=== PATIENT | male | born 1940 | race Caucasian/White ===

== ENCOUNTER 2016-11-22 16:28 | Inpatient (IN) ==
--- NOTE | 2016-11-22 16:55 | EKG Report ---
Stationary ECG Study [facility] ER Test Date: 11/22/2016 4:39:02 PM Pat Name: MOHIT NELSON Department: Room: Gender: M [employer]: : 1940 Requested by: Garfield Arguelles Order Number: [id number] Reading MD: JEREMIE BARNEY Intervals [place] Rate: 92 P: 999 W[place]: 0 QRS: 24 QRSD: 126 T: -12 QT: 357 QTc: 407 Interpretive Statements ATRIAL FIBRILLATION WITH ABERRANT CONDUCTION OR VENTRICULAR PREMATURE COMPLEXES RSR (QR) IN V1/V2 CONSISTENT WITH RIGHT VENTRICULAR CONDUCTION DELAY MINIMAL ST DEPRESSION, PROBABLY DIGITALIS EFFECT ABNORMAL RHYTHM ECG Electronically Signed On 11-23-16 15:41:03 CDT by JEREMIE BARNEY [email or web address]
--- NOTE | 2016-11-22 19:42 | Emergency Department Note ---
Arrival - Arrival Chief Complaint: Shortness of Breath Stated Complaint: chest pains/hard to breathe ED Nursing Triage Note: C/o congestion, cough, and SOB-onset two days ago. also reports elevated temp of 100.0. Mode of Arrival: Wheelchair Time Seen by Provider: 11/22/16 18:18 - History of Present Illness HPI Narrative: This is a 76-year-old white male with a history of pulmonary embolus and atrial fibrillation on Pradaxa, congestive heart failure, hypertension, previous pneumonia, type 2 diabetes and hyperlipidemia who presents with 3 days of chest pain and shortness of breath which is worse with recumbent position in which yesterday was associated with a temperature of 100. The patient presents for evaluation of his chest pain shortness of breath and fever. He has had no syncope abdominal pain back pain palpitations or coughing blood. Allergies/Adverse Reactions: Allergies Allergy/AdvReac Type Severity Reaction Status Date / Time hydrocodone Allergy Verified 09/26/15 16:07 Home Medications: Home Medications Medication Instructions Recorded Confirmed Type Atorvastatin [Lipitor] 40 mg PO MOWEFR 09/26/15 11/22/16 History Carvedilol 3.125 mg PO BID 09/26/15 11/22/16 History Dabigatran [Pradaxa] 150 mg PO BID 09/26/15 11/22/16 History Furosemide Tab [Lasix Tab] 40 mg PO DAILY 09/26/15 11/22/16 History Insulin Glargine,Hum.rec.anlog 50 unit SUBCUT QPM 09/26/15 11/22/16 History [Lantus SoloStar] Oxycodone HCl/Acetaminophen 1 - 2 each PO Q6HR PRN #30 tablet 09/26/15 11/22/16 Rx [Oxycodon-Acetaminophen 7.5-325] Sertraline [Zoloft] 100 mg PO DAILY 09/26/15 11/22/16 History clonazePAM [Clonazepam] 0.5 mg PO TID 09/26/15 11/22/16 History Insulin Glargine [Lantus] 68 unit SUBCUT AC SUPPER 11/22/16 11/22/16 History Review of System - Review of System Constitutional: Present: fever. Absent: night sweats, weakness Eyes: Absent: redness, vision change Head/Ears/Nose/Throat: Absent: epistaxis, nasal drainage Respiratory: Present: cough. Absent: wheezing Cardiovascular: Present: dyspnea on exertion, orthopnea. Absent: edema Gastrointestinal: Absent: diarrhea, constipation, hematemesis, melena Genitourinary male: Absent: dysuria, hematuria Musculoskeletal: Absent: joint swelling, lower back pain Skin: Absent: change in color, change in hair/nails Neurological: Absent: numbness, paresthesias Psychiatric: Absent: suicidal thoughts, homicidal thoughts Endocrine: Absent: heat intolerance, polydipsia Hematological/Lymphatic: Absent: easy bruising, lymphadenopathy Allergic/Immunologic: Absent: urticaria, itchy eyes Medical,Surgical,& Family Hx - Medical History Cardio: History of: Cardiac Dysrhythmia (afib), CHF, Hypertension Endocrine: History of: Diabetes Mellitus (IDDM) Respiratory: History of: Bronchitis, Pneumonia - Social History Smoking Status: Never smoker Frequency of Alcohol Use: None Type of Drug Use: None Exam Vital Signs: Vital Signs Temperature 98.4 F 11/22/16 17:30 Pulse Rate 100 H 11/22/16 17:30 Respiratory Rate 18 11/22/16 17:30 Blood Pressure 126/68 11/22/16 17:30 O2 Sat by Pulse Oximetry 93 L 11/22/16 16:33 - General Exam limited due to: ALOC General appearance: alert - Eye Eye exam: Present: PERRL, EOMI - ENT ENT exam: Present: normal exam, normal oropharynx - Neck Neck exam: Present: normal inspection, full ROM - Chest Chest inspection: Present: normal inspection, symmetric chest wall rise - Respiratory Respiratory exam: Present: normal lung sounds bilaterally, prolonged expiratory phase - Cardiovascular Cardiovascular exam: Present: regular rate, normal rhythm - Abdominal Exam Abdominal exam: Present: soft, normal bowel sounds - Extremities Exam Extremities exam: Present: normal inspection, full ROM - Back Exam Back exam: Present: normal inspection, full ROM - Neurological Exam Neurological exam: Present: alert, oriented X3 - Psychiatric Psychiatric exam: Present: normal affect, normal mood
[2016-11-22] MEDS ORDERED: ACETAMINOPHEN 500 MG TABLET PO STA (19:46)
[2016-11-22] MEDS ORDERED: ACETAMINOPHEN 500 MG TABLET ONE (19:49)
[2016-11-22 20:01] LABS: Basophils % 0.3 % (0.0-0.8); Eosinophils # 0.1 10*3/uL (0.0-0.87); Eosinophils % 0.4 % (0.00-10.9); Hematocrit 40.2 VOL% (42.0-52.0); Hemoglobin 13.7 GM/DL (14.0-18.0); Immature Granulocytes % 0.8 %; Immature Granulocytes Absolute 0.11 #; Lymphocytes # 1.9 10*3/uL (1.4-4.0); Lymphocytes % 13.6 % (21.2-54.2); Mean Corpuscular HGB Conc 34.1 GM/DL (32-36); Mean Corpuscular Hemoglobin 29 PG (27-34); Mean Corpuscular Volume 84.5 FL (87-102); Mean Platelet Volume 10.4 FL (9.6-12.0); Monocytes # 1.1 10*3/uL (0.11-0.8); Neutrophils # 10.6 10*3/uL (1.4-7.4); Neutrophils % 76.9 % (38.7-73.9); Platelet Count 303 T/CUMM (130-400); Red Blood Count 4.76 MC/CUMM (3.8-5.5); Red Cell Distribution Width 14.3 % (9.3-17.3); White Blood Count 13.8 T/CUMM (4-12)
[2016-11-22 20:17] LABS: Alanine Aminotransferase 16 U/L (16-61); Albumin 3.7 G/DL (3.4-5.0); Alkaline Phosphatase 86 U/L (45-117); Aspartate Amino Transferase 14 U/L (0-37); Blood Urea Nitrogen 17 MG/DL (7-18); Calcium 8.9 MG/DL (8.5-10.1); Glucose 220 MG/DL (74-106); Osmolality,Calculated 266.9 MOS/KG (273-304); Potassium 4.3 MMOL/L (3.5-5.1); Sodium 129 MMOL/L (136-145); Troponin I Only < 0.015 NG/ML (0.00-0.045)
--- NOTE | 2016-11-22 21:10 | CT Report ---
CTA chest November 22, 2016 at 2044 hours Indication: Chest pain, shortness of breath, fever Comparison: March 17, 2012 Technique: Axial CT imaging of the chest is performed with intravenous contrast. Contrast dose is 80 cc of Omnipaque 350. Findings: Chest: No thrombus or other abnormality is identified in the pulmonary arteries or veins. The pulmonary vessel caliber is within normal limits. Mild Four-chamber cardiomegaly. Scattered plaquing along the arch and coronary vessels. No adenopathy. No effusions. A few scattered pulmonary granulomas, largest within the right lung base, stable. Left basilar atelectasis/scarring. Lungs are otherwise clear. Visualized abdomen: Cholelithiasis. Impression: 1. No evidence of pulmonary embolism 2. No acute intrathoracic abnormality. 3. Cholelithiasis 4. Other findings as discussed above This CT exam was performed using one or more the following dose reduction techniques: Automated exposure control, adjustment of the MA and/or KV according to patient size, or use of iterative reconstruction technique. PROCEDURE INTERPRETED AT [facility] DEPARTMENT OF RADIOLOGY Final Report Signed by: Domingo Roberson
[2016-11-22] MEDS ORDERED: PIPERACILLIN/TAZOBACTAM 3,375 MG in SODIUM CHLORIDE 0.9% 100 ML IV STA (23:13)
[2016-11-22] MEDS ORDERED: metroNIDAZOLE INJ 500 MG in PREMIX 1 EACH IV STA (23:13)
[2016-11-22] MEDS ORDERED: PIPERACILLIN/TAZOBACTAM 3,375 MG VIAL IV ONE (23:17)
[2016-11-22] MEDS ORDERED: metroNIDAZOLE 500 MG/100 ML PREMIX IV ONE (23:17)
[2016-11-22] MEDS ORDERED: SODIUM CHLORIDE 0.9% 100 ML IV ONE (23:18)
[2016-11-22] MEDS ORDERED: SODIUM CHLORIDE 0.9% 2,000 ML IV STA (23:23)
[2016-11-22] MEDS ORDERED: ACETAMINOPHEN 325 MG TABLET PO PRN (23:41)
--- NOTE | 2016-11-23 00:11 | Hospitalist Consult Note ---
History of Present Illness - Data of Consult Consult date: 11/23/16 - Consult Narrative Reason for consult: Managment of medical problems History of present illness: Mr. Casey is a 76 year old male who presents with vague complaints of anterior chest pain and SOB for the past 3 days. Patient reports a temperature of 100 at home, and he decided to come in. Imaging done and suggestive of biliary disease with air in the gallbladder and biliatry tree. Surgery was called, and surgery has decided to admit the patient to their service. Hospitalist service was consulted for medical management. Patient is a difficult but pleasant historian. He states that about 3 days ago, he woke up because of anterior chest pain and shortness of breath. Prior to going to bed, he ate some spicy food. Chest discomfort was pressure like and relieved with belching/tums/nexium/baking soda. Symptoms were intermittent. He had a temperature of 100 degrees today and decided to come to the ER. He also had some chills and nausea but no vomiting. He denies any lightheadnes/dizziness /diarrhea/abdominal pain. While in the ER, CT of the chest abdomen and pelvis was done as well as a gallbladder ultrasound. CTAP and RUQUS showed air in the gallbladder and biliary system and gallstones. He was also started on zosyn/flagyl/ppi. CC: - Home Medications and Allergies Home Medications: Home Medications Medication Instructions Recorded Confirmed Type Atorvastatin [Lipitor] 40 mg PO MOWEFR 09/26/15 11/22/16 History Carvedilol 3.125 mg PO BID 09/26/15 11/22/16 History Dabigatran [Pradaxa] 150 mg PO BID 09/26/15 11/22/16 History Furosemide Tab [Lasix Tab] 40 mg PO DAILY 09/26/15 11/22/16 History Insulin Glargine,Hum.rec.anlog 50 unit SUBCUT QPM 09/26/15 11/22/16 History [Lantus SoloStar] Oxycodone HCl/Acetaminophen 1 - 2 each PO Q6HR PRN #30 tablet 09/26/15 11/22/16 Rx [Oxycodon-Acetaminophen 7.5-325] Sertraline [Zoloft] 100 mg PO DAILY 09/26/15 11/22/16 History clonazePAM [Clonazepam] 0.5 mg PO TID 09/26/15 11/22/16 History Insulin Glargine [Lantus] 68 unit SUBCUT AC SUPPER 11/22/16 11/22/16 History Allergies/Adverse Reactions: Allergies Allergy/AdvReac Type Severity Reaction Status Date / Time hydrocodone Allergy Verified 09/26/15 16:07 Medical,Surgical,& Family Hx - Medical History Cardio: History of: Cardiac Dysrhythmia (afib), CHF, Hypertension Endocrine: History of: Diabetes Mellitus (IDDM) Respiratory: History of: Bronchitis, Pneumonia - Surgical History Orthopedic Surgeries: Surgical HX of;: Orthopedic Surgery (partial amputation of left ring finger) - Social History Smoking Status: Never smoker Frequency of Alcohol Use: None Type of Drug Use: None 12 point system: reviewed and no additional remarkable complaints except as stated Exam - Constitutional Vitals: Period Temp Pulse Resp BP Sys/Pacheco Pulse Ox Last 24 Hr 98.4 F-98.4 F 100-100 18-18 126-126/68-68 93 General appearance: no acute distress, morbidly obese - Head Head exam: Present: normal inspection, normocephalic - Eye Eye exam: Present: EOMI Pupils: Present: DEMETRIA - ENT ENT exam: Present: normal exam, normal oropharynx - Respiratory Respiratory exam: Present: clear to auscultation bilaterally. Absent: chest wall tenderness, rales, rhonchi, wheezes - Cardiovascular Cardiovascular exam: Present: irregular rhythm (ns1, ns2) - GI/Abdominal GI/Abdominal exam: Present: normal bowel sounds, soft. Absent: guarding, mass ( obese), tenderness, rebound - Extremities Exam Extremities exam: Absent: edema - Neurological Exam Neurological exam: Present: alert, oriented X3 - Psychiatric Psychiatric exam: Present: normal affect, normal mood - Skin Skin exam: Present: normal color, warm, dry Results - Labs CBC & BMP: 11/22/16 18:28 11/22/16 18:28 - EKG EKG shows: atrial fibrillation - Impressions Patient is a 76 yo male with complaints of fevers, anterior chest wall pain and SOB is being admitted for suspected biliary infection. 1. Sepsis: given tachycardia and leukocytosis. Suspect biliary involvement. CT of the chest unremarkable. Bcx pending. 2. Suspected biliary infection. Could have acute cholecytitis. Surgery is primary. Will defer further management (surgurical vs non operative) to them. May need HIDA. 3. Anterior chest wall pain:likely GI in nature. EKG/TNI/BNP unremarkable. Will check for flu. 4. Acute dyspnea: likely related to biliary disease. 5. Suspected YARA 6. Hyponatremia, hypotonic. Seems to be chronic. Sodium level from 04/06 was 131. On lasix and zoloft as well. 7. Cormobid conditions: h/o PE, DM, dyslipidemia, depression, CHF, a-fib, HTN Plan: continue zosyn add flagyl; await blood culture results; check lipase, direct bilirubin; monitor cbc; check flu a/b; add nebs; IVFs while monitoring volume and respiratory status; PPI; anti emetics; consult sleep medicine; check urine lytes to calculate FeUrea (on lasix); check tsh; obtain echo; hold pradaxa for now; start weight based lovenox until plans are known by surgery; check hba1c; continue insulin to control sugars; restart home medications as appropriate; on therapeutic lovenox. Thanks for allowing the hospitalist service an opportunity to be a part of Mr. Casey' medical care. We will continue to follow the patient with you. - Diagnostic Findings Procedure: CT Abdomen and Pelvis: report reviewed by me (gallstones, air in gallbladder and biliary tree), CT - chest: report reviewed by me (no PE; cholelithiasis), Ultrasound: report reviewed by me (gallstones; air in gallbladder) Quality Measures - VTE Deep Vein Thrombosis/Pulmonary Embolism Present on Admission: No Contraindication to Pharmacological VTE Prophylaxis: Already on Theraputic Agent , No Prophylaxis Needed
[2016-11-23] MEDS ORDERED: DEXTROSE 50% 25 GM/50 ML SYRINGE IV PRN (00:49)
[2016-11-23] MEDS ORDERED: GLUCAGON 1 MG VIAL IM PRN (00:49)
[2016-11-23] MEDS ORDERED: clonazePAM 0.5 MG TABLET PO PRN (00:54)
[2016-11-23] MEDS ORDERED: SODIUM CHLORIDE 0.9% 1,000 ML IV SCH (01:00)
[2016-11-23] MEDS: metroNIDAZOLE INJ 500 MG in PREMIX 1 EACH IV SCH ×3 (01:41→22:20)
[2016-11-23] MEDS: PIPERACILLIN/TAZOBACTAM 3,375 MG in SODIUM CHLORIDE 0.9% 100 ML IV SCH ×3 (01:41→16:59)
[2016-11-23] MEDS: ENOXAPARIN 120 MG/0.8 ML SYRINGE SUBCUT SCH ×2 (01:45→12:32)
[2016-11-23 03:38] LABS: Basophils # 0.1 10*3/uL (0.0-0.2); Basophils % 0.4 % (0.0-0.8); Eosinophils # 0.2 10*3/uL (0.0-0.87); Eosinophils % 1.2 % (0.00-10.9); Hematocrit 36.7 VOL% (42.0-52.0); Hemoglobin 12.6 GM/DL (14.0-18.0); Immature Granulocytes Absolute 0.13 #; Lymphocytes # 2.2 10*3/uL (1.4-4.0); Lymphocytes % 16.9 % (21.2-54.2); Mean Corpuscular HGB Conc 34.3 GM/DL (32-36); Mean Corpuscular Hemoglobin 29 PG (27-34); Mean Platelet Volume 10.4 FL (9.6-12.0); Monocytes # 1.2 10*3/uL (0.11-0.8); Monocytes % 8.9 % (1.7-12.7); Neutrophils # 9.3 10*3/uL (1.4-7.4); Neutrophils % 71.6 % (38.7-73.9); Platelet Count 289 T/CUMM (130-400); Red Blood Count 4.37 MC/CUMM (3.8-5.5); Red Cell Distribution Width 14.4 % (9.3-17.3); White Blood Count 12.9 T/CUMM (4-12)
[2016-11-23 04:02] LABS: Albumin 3.4 G/DL (3.4-5.0); Bilirubin,Total 2.6 MG/DL (0.2-1.0); Calcium 8.5 MG/DL (8.5-10.1); Osmolality,Calculated 265.7 MOS/KG (273-304); Potassium 3.9 MMOL/L (3.5-5.1); Total Protein 6.5 G/DL (6.4-8.3)
[2016-11-23] MEDS: INSULIN LISPRO 100 UNIT/ML SUBCUT SCH ×3 (06:24→18:33)
[2016-11-23] MEDS: PANTOPRAZOLE 40 MG TABLET PO SCH (08:38)
--- NOTE | 2016-11-23 08:38 | CT Report ---
Exam: CT abdomen and pelvis without intravenous contrast Exam date: 11/22/2016 2239 hours Clinical History: 76-year-old male with abdominal pain, generalized radiating to epigastric Technique: Axial computed tomography images of the abdomen and pelvis without intravenous contrast. All CT scans at this facility use one or more dose reduction techniques. Automated exposure control, MA/KV adjustment per patient size (including targeted exam Square dose is matched to indication) or iterative reconstruction technique Comparison: November 06, 2010 Findings: Lower thorax: Mild two chamber cardiomegaly. Left basilar pleural thickening with mild fibrosis. Minimal pleural plaquing within the left lung base. Abdomen: Liver: Fatty infiltration Gallbladder and bile ducts: Calcified stones within a nondistended gallbladder. No ductal dilatation. Air is present within the gallbladder and biliary tree, correlate with history of intervention. Infection with gas producing organism cannot be excluded. Pancreas: Pancreas is normal. Spleen: Spleen is normal. Adrenals: No adrenal mass. Kidneys and ureters: Residual contrast within the renal collecting system and urinary bladder. No hydronephrosis. No ureteral calculus. Stomach and bowel: No evidence of acute gastritis, colitis or enteritis. No bowel obstruction. Appendix: No primary or secondary signs to suggest appendicitis. Pelvis: Bladder: Unremarkable Reproductive: Unremarkable as visualized. Abdomen and pelvis: Intraperitoneal space: No pneumoperitoneum. No free intraperitoneal fluid Bones/joints: No acute osseous abnormality. Note is made of bilateral pars defects at L5 Soft tissues: No mass Vasculature: No aortic aneurysm. Atheromatous calcifications noted along the aorta and branch vessels. Lymph nodes: No adenopathy Impression: 1. Cholelithiasis. 2. Intraluminal air within the gallbladder and biliary tree, correlate clinically for recent instrumentation. Infection with gas producing organism cannot be excluded. Correlate clinically. PROCEDURE INTERPRETED AT [facility] DEPARTMENT OF RADIOLOGY Final Report Signed by: Domingo Roberson
--- NOTE | 2016-11-23 08:45 | Ultrasound Report ---
Exam: Ultrasound abdomen Limited, right upper quadrant Clinical History: The patient is 76-year-old male with pain, abdominal, epigastric Technique: Real-time ultrasound right upper quadrant with image documentation Comparison: CT abdomen and pelvis without contrast performed on same date at 2237 hours Findings: Liver: Liver is slightly enlarged and demonstrates diffuse increased echogenicity measuring up to 19.0 cm Gallbladder: Multiple shadowing stones with layering sludge. Additional echogenic foci with posterior shadowing likely represents air as demonstrated on recent CT. Mild circumferential gallbladder wall thickening. Common bile duct: Nondilated Pancreas: Unremarkable as visualized Right kidney: Unremarkable Impression: 1. Cholelithiasis with intraluminal air and mild gallbladder wall thickening. Findings concerning for emphysematous cholecystitis. Correlate clinically. 2. Hepatomegaly with steatosis PROCEDURE INTERPRETED AT [facility] DEPARTMENT OF RADIOLOGY Final Report Signed by: Domingo Roberson
[2016-11-23] MEDS ORDERED: LORazepam 2 MG/1 ML VIAL IV PRN (08:51)
--- NOTE | 2016-11-23 10:57 | General Surg History&Physical ---
Assessment and Plan (1) Pneumobilia Status: Acute Assessment and plan: Impression: Asymptomatic pneumobilia Plan: CT images and report and ultrasound reviewed. Labs reviewed. Of significance is air and stones within the gallbladder but no gallbladder wall emphysema. Suggestion of mild gallbladder wall thickening but not significant enough to suggest cholecystitis. He has some air in the common bile duct and hepatic ducts. Bilirubin is elevated at 2.6 but the remainder of his LFTs are normal. White blood cell count elevated upon admission now improved to 12.9. He also has hepatomegaly and steatosis. He has no abdominal pain with a completely benign abdominal exam. Will consult cardiology for his chest pressure as he is known to Dr. Moran. Hyperbilirubinemia causes unknown. His duct was normal size and so I think choledocholithiasis is a possibility but unlikely. He does not appear septic such as would be seen with cholangitis with a gas-forming organism. 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 No plans for any surgical intervention at this time. Will consult GI for their evaluation. We will also check a hepatitis panel. Recheck his lab work tomorrow. Regular diet today. We will check a urinalysis. Current Visit: Yes History of Present Illness Chief complaint: Anxiety attack History of present illness: Mr. Casey is a 76 year old male with multiple medical problems who woke up in the middle of the night with tightness across his chest. He says this occurs quite frequently and he attributes it to a panic attack. He says he usually is able to calm himself down. He apparently checked his temperature this time and it was 100.4. He called his daughter who is a nurse who told him to go to the emergency room. He was evaluated by the emergency room physicians and a workup was performed. On that workup he was found to have gallstones and air in the biliary tree and gallbladder. His symptoms have resolved. He denies shortness of breath but he has to pause with every sentence to take of breath. Previous abdominal surgical history is an open prostatectomy for cancer. He denies any recent instrumentation of his GI tract. Home Medications Medication Instructions Recorded Confirmed Type Atorvastatin [Lipitor] 40 mg PO MOWEFR 09/26/15 11/22/16 History Carvedilol 3.125 mg PO BID 09/26/15 11/22/16 History Dabigatran [Pradaxa] 150 mg PO BID 09/26/15 11/22/16 History Furosemide Tab [Lasix Tab] 40 mg PO DAILY 09/26/15 11/22/16 History Insulin Glargine,Hum.rec.anlog 50 unit SUBCUT QPM 09/26/15 11/22/16 History [Lantus SoloStar] Oxycodone HCl/Acetaminophen 1 - 2 each PO Q6HR PRN #30 tablet 09/26/15 11/22/16 Rx [Oxycodon-Acetaminophen 7.5-325] Sertraline [Zoloft] 100 mg PO DAILY 09/26/15 11/22/16 History clonazePAM [Clonazepam] 0.5 mg PO TID 09/26/15 11/22/16 History Insulin Glargine [Lantus] 68 unit SUBCUT AC SUPPER 11/22/16 11/22/16 History Allergies Allergy/AdvReac Type Severity Reaction Status Date / Time hydrocodone Allergy Verified 09/26/15 16:07 Medical,Surgical,& Family Hx - Medical History Cardio: History of: Cardiac Dysrhythmia (afib), CHF, Hypertension Endocrine: History of: Diabetes Mellitus (IDDM) Respiratory: History of: Bronchitis, Pneumonia Reproductive: Reports: Reproductive Cancer (prostate) - Surgical History HEENT Surgeries: Surgical HX of: Tonsilectomy & Adenoidectomy Orthopedic Surgeries: Surgical HX of;: Orthopedic Surgery (partial amputation of left ring finger) - Social History Smoking Status: Never smoker Frequency of Alcohol Use: None Type of Drug Use: None Exam - Constitutional Vitals: Period Temp Pulse Resp BP Sys/Pacheco Pulse Ox Last 24 Hr 97.0 F-98.4 F 82-100 18-20 88-126/55-68 93-98 General appearance: no acute distress - Head Head exam: Present: normocephalic - ENT Mouth exam: Present: normal external inspection - Neck Neck exam: Present: normal inspection - Cardiovascular Cardiovascular exam: Present: RRR - GI/Abdominal GI/Abdominal exam: Present: soft (Completely benign. No tenderness or distention at all.) - Back Exam Back exam: Present: normal inspection - Neurological Exam Neurological exam: Present: alert Speech: Present: normal - Skin Skin exam: Present: normal color 12 point system: reviewed and no additional remarkable complaints except as stated Quality Measures - VTE Deep Vein Thrombosis/Pulmonary Embolism Present on Admission: No Contraindication to Pharmacological VTE Prophylaxis: Already on Theraputic Agent , No Prophylaxis Needed Results - Labs CBC & BMP: 11/23/16 02:08 11/23/16 02:08 Lab Results: I have reviewed the past 24 hour labs
--- NOTE | 2016-11-23 13:16 | Cardiology Consult Note ---
Assessment and Plan (1) Pneumobilia Status: Acute Assessment and plan: It appears that his symptoms are probably related to his gallbladder. Surgical treatment is an option being considered. From a cardiac standpoint he is well compensated. I reviewed his echocardiogram which shows normal left ventricular function. He does not have any significant valvular dysfunction. From a cardiac standpoint I think he is low risk to proceed to surgery if needed. Current Visit: Yes (2) Gallstone Status: Acute Current Visit: Yes (3) Hypertension Status: Acute Assessment and plan: We can resume his usual home medications and make adjustments as needed. Current Visit: Yes (4) Diabetes Status: Acute Assessment and plan: We can resume his usual home medications and make adjustments as needed per Current Visit: Yes (5) Chronic atrial fibrillation Status: Acute Assessment and plan: The patient has chronic atrial fibrillation which is well controlled on his current medical regimen. I do not see any reason to make any changes at this time. Current Visit: Yes (6) Chronic anticoagulation Status: Acute Assessment and plan: We can resume this when it is safe from a postoperative standpoint. Current Visit: Yes (7) Morbid obesity Status: Acute Current Visit: Yes (8) Elevated bilirubin Status: Acute Current Visit: Yes History of Present Illness - Consult Narrative History of present illness: Mr. Casey is a 76 year old male who has a history of chronic atrial fibrillation, hypertension, morbid obesity, and diabetes. His normal shop cooper is Dr. Moran. The patient came to the hospital after experiencing some epigastric chest discomfort last night along with low-grade fever. The symptoms were moderate in severity. He attributes them to eating certain spicy foods. Otherwise there were no specific exacerbating or relieving factors. He had some mild nausea but no vomiting. His workup thus far has included cardiac enzymes which are negative, and EKG which shows chronic atrial fibrillation with controlled ventricular response and right bundle branch block. There are no acute EKG changes. However, his bilirubin was elevated and his workup thus far including chest CT and gallbladder ultrasound also shows pneumobilia and gallstones. He may end up needing surgery for this. The patient attributes all of these symptoms to eating peanuts chips and other spicy foods. He denies any exertional angina. He has no known history of coronary artery disease. He does have chronic mild dyspnea on exertion which he relates to his morbid obesity and/or deconditioning. The patient denies any syncope or presyncope. He has no orthopnea, PND, or peripheral edema. He has no history of congestive heart failure. He has a long -standing history of diabetes and reports this is generally well controlled. He has a long-standing history of hypertension which is also been generally well controlled. He has chronic atrial fibrillation which is been managed with rate control and anticoagulation. He does not have any overt symptoms related to this. He denies any bleeding associated with his chronic anticoagulation. He denies any history of coronary artery disease or angina. He has never had a myocardial infarction or stents. Today I reviewed his old hospital records, current hospital records and testing , clinic notes, EKGs, labs, and today's echo. CC: Tim Amado MD - Home Medications and Allergies Home Medications: Home Medications Medication Instructions Recorded Confirmed Type Atorvastatin [Lipitor] 40 mg PO MOWEFR 09/26/15 11/22/16 History Carvedilol 3.125 mg PO BID 09/26/15 11/22/16 History Dabigatran [Pradaxa] 150 mg PO BID 09/26/15 11/22/16 History Furosemide Tab [Lasix Tab] 40 mg PO DAILY 09/26/15 11/22/16 History Insulin Glargine,Hum.rec.anlog 50 unit SUBCUT QPM 09/26/15 11/22/16 History [Lantus SoloStar] Oxycodone HCl/Acetaminophen 1 - 2 each PO Q6HR PRN #30 tablet 09/26/15 11/22/16 Rx [Oxycodon-Acetaminophen 7.5-325] Sertraline [Zoloft] 100 mg PO DAILY 09/26/15 11/22/16 History clonazePAM [Clonazepam] 0.5 mg PO TID 09/26/15 11/22/16 History Insulin Glargine [Lantus] 68 unit SUBCUT AC SUPPER 11/22/16 11/22/16 History Allergies/Adverse Reactions: Allergies Allergy/AdvReac Type Severity Reaction Status Date / Time hydrocodone Allergy Verified 09/26/15 16:07 12 point system: reviewed and no additional remarkable complaints except as stated Medical,Surgical,& Family Hx - Medical History Cardio: History of: Cardiac Dysrhythmia (afib), CHF, Hypertension Endocrine: History of: Diabetes Mellitus (IDDM) Respiratory: History of: Bronchitis, Pneumonia Reproductive: Reports: Reproductive Cancer (prostate) - Surgical History HEENT Surgeries: Surgical HX of: Tonsilectomy & Adenoidectomy Orthopedic Surgeries: Surgical HX of;: Orthopedic Surgery (partial amputation of left ring finger) - Social History Smoking Status: Never smoker Frequency of Alcohol Use: None Type of Drug Use: None Physical Examination Vital Signs Temp Pulse Resp BP Pulse Ox 98.4 F 100 H 18 126/68 93 L 11/22/16 16:33 11/22/16 16:33 11/22/16 16:33 11/22/16 16:33 11/22/16 16:33 Exam: General: Well-developed well-nourished, morbidly obese and in no acute distress HEENT: Normocephalic, atraumatic Neck: Supple Neck, Midline Trachea Cardiac: Irregular Rhythm, 1 out of 6 to 2 out of 6 systolic murmur, no gallop, no rub Lungs: Grossly Normal Exam, Clear to Ascultation, No Wheeze, Rales, Rhonchi Neuro: Cranial Nerve 2-12 Intact, grossly normal Abdomen: Soft, Active Bowel Sounds, No Masses, No Pulsations/Bruits Skin: Normal color, no rash Extremities: No Clubbing, No Cyanosis, No Edema, Normal Upper Extr. Pulses Musculoskeletal: No acute abnormality noted Psychiatric: The patient is alert and oriented and does not appear to be anxious or depressed. Result/EKG - Labs CBC & BMP: 11/23/16 02:08 11/23/16 02:08 Lab Results: I have reviewed the past 24 hour labs Labs: Laboratory Results - last 24 hr 11/22/16 11/22/16 11/22/16 18:28 18:28 18:28 WBC 13.8 H RBC 4.76 Hgb 13.7 L Hct 40.2 L MCV 84.5 L MCH 29 MCHC 34.1 RDW 14.3 Plt Count 303 MPV 10.4 Neut % (Auto) 76.9 H Lymph % (Auto) 13.6 L Emery % (Auto) 8.0 Eos % (Auto) 0.4 Baso % (Auto) 0.3 Neut # (Auto) 10.6 H Lymph # (Auto) 1.9 Emery # (Auto) 1.1 H Eos # (Auto) 0.1 Baso # (Auto) 0.0 Immature Gran % 0.8 Nucleated RBC % 0.0 Immature Gran # 0.11 Nucleated RBCs # 0.00 Immature Plt Fraction 0.0 Sodium 129 L Potassium 4.3 Chloride 93 L Carbon Dioxide 28 Anion Gap 12.3 BUN 17 Creatinine 1.20 GFR Calculation 81 BUN/Creatinine Ratio 14.00 Glucose 220 H POC Glucose Hemoglobin A1c Calculated Osmolality 266.9 L Calcium 8.9 Total Bilirubin 2.50 H Direct Bilirubin AST 14 ALT 16 Alkaline Phosphatase 86 Troponin I < 0.015 C-Reactive Protein 17.30 H B-Natriuretic Peptide 187 H Total Protein 7.0 Albumin 3.7 Globulin 3.3 Albumin/Globulin Ratio 1.1 Lipase Urine Osmolality Ur Random Creatinine Ur Random Sodium Ur Random Urea Nitrogn 11/22/16 11/23/16 11/23/16 19:22 02:08 02:08 WBC 12.9 H RBC 4.37 Hgb 12.6 L Hct 36.7 L MCV 84.0 L MCH 29 MCHC 34.3 RDW 14.4 Plt Count 289 MPV 10.4 Neut % (Auto) 71.6 Lymph % (Auto) 16.9 L Emery % (Auto) 8.9 Eos % (Auto) 1.2 Baso % (Auto) 0.4 Neut # (Auto) 9.3 H Lymph # (Auto) 2.2 Emery # (Auto) 1.2 H Eos # (Auto) 0.2 Baso # (Auto) 0.1 Immature Gran % 1.0 Nucleated RBC % 0.0 Immature Gran # 0.13 Nucleated RBCs # 0.00 Immature Plt Fraction 0.0 Sodium 131 L Potassium 3.9 Chloride 94 L Carbon Dioxide 27 Anion Gap 13.9 BUN 18 Creatinine 1.20 GFR Calculation 81 BUN/Creatinine Ratio 15.00 Glucose 138 H POC Glucose 245 H Hemoglobin A1c Calculated Osmolality 265.7 L Calcium 8.5 Total Bilirubin 2.60 H Direct Bilirubin AST 13 ALT 14 L Alkaline Phosphatase 81 Troponin I C-Reactive Protein B-Natriuretic Peptide Total Protein 6.5 Albumin 3.4 Globulin 3.1 Albumin/Globulin Ratio 1.0 L Lipase Urine Osmolality Ur Random Creatinine Ur Random Sodium Ur Random Urea Nitrogn 11/23/16 11/23/16 11/23/16 02:08 02:08 02:08 WBC RBC Hgb Hct MCV MCH MCHC RDW Plt Count MPV Neut % (Auto) Lymph % (Auto) Emery % (Auto) Eos % (Auto) Baso % (Auto) Neut # (Auto) Lymph # (Auto) Emery # (Auto) Eos # (Auto) Baso # (Auto) Immature Gran % Nucleated RBC % Immature Gran # Nucleated RBCs # Immature Plt Fraction Sodium Potassium Chloride Carbon Dioxide Anion Gap BUN Creatinine GFR Calculation BUN/Creatinine Ratio Glucose POC Glucose Hemoglobin A1c 8.8 H Calculated Osmolality Calcium Total Bilirubin Direct Bilirubin 0.490 H AST ALT Alkaline Phosphatase Troponin I C-Reactive Protein B-Natriuretic Peptide Total Protein Albumin Globulin Albumin/Globulin Ratio Lipase 65.0 L Urine Osmolality Ur Random Creatinine Ur Random Sodium Ur Random Urea Nitrogn 11/23/16 11/23/16 11/23/16 05:38 06:30 Unknown WBC RBC Hgb Hct MCV MCH MCHC RDW Plt Count MPV Neut % (Auto) Lymph % (Auto) Emery % (Auto) Eos % (Auto) Baso % (Auto) Neut # (Auto) Lymph # (Auto) Emery # (Auto) Eos # (Auto) Baso # (Auto) Immature Gran % Nucleated RBC % Immature Gran # Nucleated RBCs # Immature Plt Fraction Sodium Potassium Chloride Carbon Dioxide Anion Gap BUN Creatinine GFR Calculation BUN/Creatinine Ratio Glucose POC Glucose 115 H Hemoglobin A1c Calculated Osmolality Calcium Total Bilirubin Direct Bilirubin AST ALT Alkaline Phosphatase Troponin I C-Reactive Protein B-Natriuretic Peptide Total Protein Albumin Globulin Albumin/Globulin Ratio Lipase Urine Osmolality 241 Ur Random Creatinine 72 Ur Random Sodium 9.0 Ur Random Urea Nitrogn 379 - EKG EKG results: interpreted by mo Quality Measures - VTE Deep Vein Thrombosis/Pulmonary Embolism Present on Admission: No Contraindication to Pharmacological VTE Prophylaxis: Already on Theraputic Agent , No Prophylaxis Needed
--- NOTE | 2016-11-23 13:32 | ECHO Report ---
Nik Casey Exam Date: 11/23/2016 10:59 Referring Physician: Technologist: Cora Briggs Age: 76 Ht (in): 70 Wt (lb): 285 Gender: M Exam Location: [facility] Echo Indications: Hx. A FIb, Hx. diabetes, bronchitis, pneumonia, sob BP: 115 / 58 HR: 82 Rhythm: Sinus Technical Quality: IMPRESSIONS Normal left ventricular size and systolic function with ejection fraction estimated at 50-55%. There is mild concentric left ventricular hypertrophy. Mild right heart enlargement. Mild left atrial enlargement. Mild mitral annular calcification and mild mitral leaflet thickening with trace mitral regurgitation. Mild aortic sclerosis with trace aortic insufficiency. Mild tricuspid regurgitation. MEASUREMENTS (Male / Female) Normal Values 2D ECHO LV Diastolic Diameter PLAX 3.9 cm 4.2 - 5.9 / 3.9 - 5.3 cm LV Systolic Diameter PLAX 2.3 cm LV Fractional Shortening PLAX 39.5 % IVS Diastolic Thickness 2.0 cm 0.6 - 1.0 / 0.6 - 0.9 cm LVPW Diastolic Thickness 1.6 cm 0.6 - 1.0 / 0.6 - 0.9 cm Aortic Root Diameter 3.5 cm LA Systolic Diameter LX 5.4 cm 3.0 - 4.0 / 2.7 - 3.8 cm DOPPLER TR Peak Velocity 202.0 cm/s TR Peak Gradient 16.3 mmHg FINDINGS Left Ventricle Normal left ventricular size and systolic function with ejection fraction estimated at 50-55%. There is mild concentric left ventricular hypertrophy. Right Ventricle Mildly enlarged Right Atrium Mildly enlarged Left Atrium Mildly enlarged Mitral Valve Mitral annular calcification and mild mitral leaflet thickening with trace mitral regurgitation Aortic Valve Mildly sclerotic with trace aortic insufficiency Tricuspid Valve Structurally normal with mild tricuspid regurgitation Pulmonic Valve Grossly normal Pericardium No effusion Aorta Grossly normal Dariusz Moss (Electronically Signed) Final Date: 23 November 2016 13:21
--- NOTE | 2016-11-23 16:23 | Gastrointestinal Consult Note ---
Assessment and Plan - Time spent with patient Time spent with patient: Greater than 30 minutes (1) Fatty liver Status: Acute Current Visit: Yes (2) Pneumobilia Status: Acute Current Visit: Yes (3) Gallstone Status: Acute Current Visit: Yes (4) Elevated bilirubin Status: Acute Assessment and plan: PLEASE NOTE -- automatic citation of patient information is unavoidable in this electronic note. I have made a reasonable effort to review the information cited , but it is not a part of my evaluation, impression, or recommendation unless specifically discussed in the dictated text that follows. As well, voice recognition software was used in the creation of this clinical note. Reasonable effort was made to identify and correct gross errors. Despite proofreading, errors in crusher setter may be present, including nonsense verbiage at times. If you encounter such an error, please contact me at [phone] for discussion and correction. -- Dr. Obrien Chief complaint/Consult Question: Pneumobilia Consult requested by: Dr. Amado History of present illness: This is a new patient, a 76-year-old obese, man, admitted to the hospital for fever, and found to have pneumobilia. Patient states that for the 3 days leading up to admission he was having significant fevers, Reiger's, temp approximately 100/101. This was associated with pain across central chest, radiating to the right upper quadrant. Also associated with significant food aversion, and did not want to eat or drink at all. Finally came to the ER after prodding by RN daughter. Symptoms have now mostly resolved, no abdominal pain, no chest pain, thinks that food sounds good. States he has been told in the past he had gallstones, and was recommended by at least one physician to have removed, and he had declined at that time. He does not recall if he has ever had acute cholecystitis, or choledocholithiasis symptomatic in the past. GI review of systems included: heartburn, regurgitation, early satiety, dysphagia, odynophagia, abdominal pain, nausea, vomiting, hematemesis, weight loss, weight gain, fever, chills, fatigue, decreased appetite, diarrhea, constipation, hematochezia, melena, bloating, malodorous flatus, anal pain, or NSAID use, and was negative except as noted above. REVIEW OF SYSTEMS: Complete other review of systems negative except as noted in the HPI. Outpatient medications: Personally reviewed Lasix 40 mg p.o. daily, Pradaxa 150 mg p.o. twice daily, Coreg 3.125 mg p.o. twice daily, Lipitor 40 mg daily, Zoloft 100 mg p.o. daily, clonazepam 0.5 mg p.o. 3 times daily, Lantus 68 units q. before mealssupper, Lantus 50 units nightly Inpatient medications: Personally reviewed Tylenol as needed, duo nebs as needed, Klonopin as needed, treatment dose Lovenox 120 mg every 12 hours scheduled, glucagon as needed, Lantus, Humalog, Ativan as needed, Zofran as needed Metronidazole 500 mg every 8 hoursstarted 11/23/16 Protonix 40 mg p.o. daily Pipracil and tazobactam 3.375 every 8 hoursstarted 11/22/16 Past Medical History: Personally reviewed Social history: Negative tobacco. Prior heavy alcohol, nothing for greater than 10 years Family history: Personal history of prostate cancer, brother with prostate cancer, personal history of skin cancer on the face nonmelanoma. No other GI related disease or malignancy PHYSICAL EXAMINATION: CONSTITUTIONAL: Vital signs reviewed as documented above. In no acute distress. Nontoxic-appearing. EYES: Anicteric conjunctiva. Extra-ocular movements are intact and symmetric. EARS: Able to hear speech at conversational volume level, no external trauma/ masses. MOUTH: No oral/mouth lesions or ulcers. NECK: No masses or crepitus. Thyroid is of normal size and symmetric. HEART: Regular rate, regular rhythm LUNGS:. No increased work of breathing or accessory muscle use. GI/ABDOMEN: Morbidly obese abdomen, soft, nontender to palpation, no rebound tenderness, nondistended, no rigidity. No palpable mass. No appreciable hepatosplenomegaly. SKIN: No rash on face, arms, or hands. No palpable lesions MUSCULOSKELETAL: Normal gait. Muscle tone appears normal without any abnormal movements. PSYCH: Normal affect. Alert and oriented to person, place, and time. Laboratory: Personally reviewed CBC with WBC improved from 13.8-12.9, hemoglobin change from 13.7-12.6, platelets 303-289, neutrophil predominance approximately 75% Chemistry with sodium 131, potassium 3.9, chloride 94, carbon dioxide 27, BUN 18 , creatinine 1.2, anion gap increased from 12.3 up to 13.9 today A1c 8.8 Liver associated enzymestotal bilirubin 2.6, direct bilirubin 0.49, AST 13, ALT 14, alk phos 81 (baseline total bilirubin from March 2014 was slightly elevated at 1.4) Lipase 65 Albumin 3.4, total protein 6.5 Radiology: Personally reviewed reports Gallbladder ultrasound from 11/22/16: Liver slightly enlarged and demonstrates diffuse increase in echogenicity. Gallbladder with multiple shadowing stones with layering sludge. Echogenic foci within posterior shadowing likely represents air is demonstrated on recent CT. Mild circumferential gallbladder wall thickening. Common bile duct is nondilated. Pancreas unremarkable. Findings concerning for emphysematous cholecystitis. Abdomen pelvis CT from 11/22/16: Significant for calcified stones within a nondistended gallbladder. No ductal dilation. Air present within the gallbladder and biliary tree. Infection with gas producing organism cannot be excluded. Pancreas is normal. Liver with fatty infiltration. Stomach and bowel with no evidence of acute gastritis, colitis, enteritis. No bowel obstruction. No evidence of appendicitis. No free intraperitoneal fluid or air. Atheromatous calcifications noted along the aorta and branch vessels. No adenopathy. Chest CT from 11/22/16: No PE, no acute intrathoracic abnormality, + cholelithiasis Assessments: #Pneumobilia: Air within the gallbladder, hepatic ducts, common bile duct. Bilirubin elevated to 2.6 but other liver associated enzymes are not elevated. Significant leukocytosis, improved with antibiotics. No clear obstruction. With significantly suspicious symptoms leading up to admission including fever, complete food aversion, I do believe this is likely an air producing infection of the biliary tree. May have been due to transient choledocholithiasis, without any evidence of retained stone currently on imaging, as there is no stone seen, and no common bile duct dilation, and symptoms have now resolved. #Fatty liver: Without evidence of hepatitis #Other specified counseling -- The patient was seen for greater than 30 minutes. The patient was counseled for greater than 50% of this time regarding differential diagnosis, likely diagnosis, diagnostic and therapeutic alternatives, risks/benefits/alternatives of medications and procedures, and plan of care generally. The patient expressed understanding and wishes to proceed. Recommendations: -Continue patient on antibiotic course per primary service -Dr. Amado to determine surgical intervention now versus elective. -Dr. Amado is considering possible ERCP prior to cholecystectomy pending clinical course. No urgent or emergent indication for this at this time. -Weight loss counseling for fatty liver disease performed today with patient and family, recommend 10% weight loss, approximately 35 pounds for this patient , 1-2 pounds per week, this can be done by increased caloric burning, reduce caloric intake, and increasing muscle mass to increase caloric burning at rest I have spoken to Dr. Amado directly regarding my thoughts, assessment, recommendations Dilia Obrien MD, MPH [employer] Current Visit: Yes History of Present Illness History of present illness: Mr. Casey is a 76 year old male Home Medications Medication Instructions Recorded Confirmed Type Atorvastatin [Lipitor] 40 mg PO MOWEFR 09/26/15 11/22/16 History Carvedilol 3.125 mg PO BID 09/26/15 11/22/16 History Dabigatran [Pradaxa] 150 mg PO BID 09/26/15 11/22/16 History Furosemide Tab [Lasix Tab] 40 mg PO DAILY 09/26/15 11/22/16 History Insulin Glargine,Hum.rec.anlog 50 unit SUBCUT QPM 09/26/15 11/22/16 History [Lantus SoloStar] Oxycodone HCl/Acetaminophen 1 - 2 each PO Q6HR PRN #30 tablet 09/26/15 11/22/16 Rx [Oxycodon-Acetaminophen 7.5-325] Sertraline [Zoloft] 100 mg PO DAILY 09/26/15 11/22/16 History clonazePAM [Clonazepam] 0.5 mg PO TID 09/26/15 11/22/16 History Insulin Glargine [Lantus] 68 unit SUBCUT AC SUPPER 11/22/16 11/22/16 History Allergies Allergy/AdvReac Type Severity Reaction Status Date / Time hydrocodone Allergy Verified 09/26/15 16:07 Medical,Surgical,& Family Hx - Medical History Cardio: History of: Cardiac Dysrhythmia (afib), CHF, Hypertension Endocrine: History of: Diabetes Mellitus (IDDM) Respiratory: History of: Bronchitis, Pneumonia Reproductive: Reports: Reproductive Cancer (prostate) - Surgical History HEENT Surgeries: Surgical HX of: Tonsilectomy & Adenoidectomy Orthopedic Surgeries: Surgical HX of;: Orthopedic Surgery (partial amputation of left ring finger) - Social History Smoking Status: Never smoker Frequency of Alcohol Use: None Type of Drug Use: None Exam - Constitutional Vitals: Period Temp Pulse Resp BP Sys/[place] Pulse Ox Last 24 Hr 96.6 F-98.4 F 82-100 18-20 88-138/55-75 93-98 Results - Labs CBC & BMP: 11/23/16 02:08 11/23/16 02:08 Quality Measures - VTE Deep Vein Thrombosis/Pulmonary Embolism Present on Admission: No Contraindication to Pharmacological VTE Prophylaxis: Already on Theraputic Agent , No Prophylaxis Needed
[2016-11-23] MEDS: INSULIN GLARGINE 100 UNIT/ML SUBCUT SCH (20:42)
[2016-11-23] MEDS ORDERED: INSULIN GLARGINE 100 UNIT/ML SUBCUT SCH (21:00)
[2016-11-24] MEDS: INSULIN LISPRO 100 UNIT/ML SUBCUT SCH ×4 (00:29→18:43)
[2016-11-24] MEDS: ENOXAPARIN 120 MG/0.8 ML SYRINGE SUBCUT SCH ×2 (01:27→13:37)
[2016-11-24] MEDS: PIPERACILLIN/TAZOBACTAM 3,375 MG in SODIUM CHLORIDE 0.9% 100 ML IV SCH ×3 (01:29→18:44)
[2016-11-24 03:29] LABS: Basophils # 0.1 10*3/uL (0.0-0.2); Basophils % 0.5 % (0.0-0.8); Eosinophils # 0.2 10*3/uL (0.0-0.87); Eosinophils % 1.8 % (0.00-10.9); Hematocrit 35.9 VOL% (42.0-52.0); Hemoglobin 12.4 GM/DL (14.0-18.0); Immature Granulocytes % 0.5 %; Immature Granulocytes Absolute 0.05 #; Lymphocytes % 18.7 % (21.2-54.2); Mean Corpuscular HGB Conc 34.5 GM/DL (32-36); Mean Corpuscular Hemoglobin 29 PG (27-34); Mean Corpuscular Volume 84.3 FL (87-102); Mean Platelet Volume 10.1 FL (9.6-12.0); Monocytes # 0.8 10*3/uL (0.11-0.8); Monocytes % 7.6 % (1.7-12.7); Neutrophils # 7.7 10*3/uL (1.4-7.4); Neutrophils % 70.9 % (38.7-73.9); Platelet Count 295 T/CUMM (130-400); Red Blood Count 4.26 MC/CUMM (3.8-5.5); Red Cell Distribution Width 14.3 % (9.3-17.3); White Blood Count 10.9 T/CUMM (4-12)
[2016-11-24 03:45] LABS: Apearance,Urine CLEAR (Clear); Bilirubin,Urine Negative (Negative); Blood, Urine Negative (Negative); Glucose,Urine (UA) Negative (Negative); Ketones,Urine Negative (Negative); Nitrite,Urine Negative (Negative); Protein,Urine Negative; Urine Color Yellow (Yellow); Urine Specific Gravity 1.005 (1.001-1.035); WBC,Urine <1 /HPF (0-6)
[2016-11-24 03:58] LABS: Albumin 3.1 G/DL (3.4-5.0); Bilirubin,Direct 0.51 MG/DL (0.0-0.20); Bilirubin,Indirect 1.3 MG/DL (0.0-1.0); Bilirubin,Total 1.8 MG/DL (0.2-1.0); Calcium 8.2 MG/DL (8.5-10.1); Osmolality,Calculated 268.1 MOS/KG (273-304); Potassium 3.8 MMOL/L (3.5-5.1); Total Protein 6.1 G/DL (6.4-8.3)
[2016-11-24 05:53] LABS: Hepatitis A Ab IgM Quant 0.03 Index; Hepatitis A Ab IgM Result Negative (Negative); Hepatitis B Core IgM Quant 0.12 Index; Hepatitis B Core IgM Result Negative (Negative); Hepatitis B Surface Ag Result Negative (Negative); Hepatitis C Virus Ab Quant 0.05 Index; Hepatitis C Virus Ab Result Negative (Negative)
[2016-11-24] MEDS: metroNIDAZOLE INJ 500 MG in PREMIX 1 EACH IV SCH ×3 (06:10→22:40)
[2016-11-24] MEDS: clonazePAM 0.5 MG TABLET PO SCH ×3 (09:35→21:25)
[2016-11-24] MEDS: SERTRALINE 100 MG TABLET PO SCH (09:35)
[2016-11-24] MEDS: PANTOPRAZOLE 40 MG TABLET PO SCH (09:35)
--- NOTE | 2016-11-24 09:45 | Hospitalist Progress Note ---
Assessment and Plan (1) Hyponatremia Status: Acute Assessment and plan: 1)hyponatremia- chronic, improved to 135 this morning. 2)chronic afib on anticoagulation 3)pneumobilia 4)morbid obesity 5)HTN- controlled but home meds not restarted yet. 6)DM- glucose 107-279. Continue current reduced dose of lantus with SSI since he is not eating regularly at this time 7)anxiety- restarted his Zoloft and clonazepam as he takes them at home since he is eating a diet. Current Visit: Yes (2) suspect YARA Status: Acute Current Visit: Yes (3) Pneumobilia Status: Acute Current Visit: Yes (4) Hypertension Status: Acute Current Visit: Yes (5) Diabetes Status: Acute Current Visit: Yes (6) Chronic atrial fibrillation Status: Acute Current Visit: Yes (7) Chronic anticoagulation Status: Acute Current Visit: Yes (8) Morbid obesity Status: Acute Current Visit: Yes Hospitalist: Subjective Interval history: Mr Casey is feeling better this morning. He was able to eat some breakfast. He rested off and on last night. His pain is improved. He denies vomiting this morning. He has not had a fever during this admission. I reviewed the notes from GI and the surgery attending. Exam - Constitutional Vitals: Period Temp Pulse Resp BP Sys/[place] Pulse Ox Last 24 Hr 96.6 F-98.8 F 88-98 18-20 106-142/57-78 91-96 General appearance: no acute distress, morbidly obese - Eye Eye exam: Present: EOMI. Absent: scleral icterus - Respiratory Respiratory exam: Present: clear to auscultation bilaterally - Cardiovascular Cardiovascular exam: Present: regular rate and rhythm - GI/Abdominal GI/Abdominal exam: Present: normal bowel sounds, tenderness, soft - Extremities Exam Extremities exam: Absent: edema Results - Labs CBC & BMP: 11/24/16 03:06 11/24/16 03:06 Lab Results: I have reviewed the past 24 hour labs Quality Measures - VTE Deep Vein Thrombosis/Pulmonary Embolism Present on Admission: No Contraindication to Pharmacological VTE Prophylaxis: Already on Theraputic Agent , No Prophylaxis Needed
--- NOTE | 2016-11-24 11:27 | General Surgery Progress Note ---
Assessment and Plan (1) Elevated bilirubin Status: Acute Assessment and plan: Repeat LFTs in the morning Current Visit: Yes (2) Fatty liver Status: Acute Current Visit: Yes (3) Pneumobilia Status: Acute Assessment and plan: At this point, most likely diagnosis is cholangitis although this is not absolute. Patient is afebrile and pain-free. Continue IV antibiotics and monitor liver function. Consider ERCP in the morning. We will hold n.p.o. for the possibility. Discussed possible cholecystectomy the patient, but he is initially reluctant. Current Visit: Yes Subjective Patient reports: Present: feels better, tolerating a regular diet, afebrile. Absent: nausea, vomiting Exam - Constitutional Vitals: Period Temp Pulse Resp BP Sys/Pacheco Pulse Ox Last 24 Hr 96.6 F-98.8 F 88-98 18-20 106-142/57-78 91-96 General appearance: no acute distress, morbidly obese - Respiratory Respiratory exam: Present: clear to auscultation bilaterally - Cardiovascular Cardiovascular exam: Present: RRR - GI/Abdominal GI/Abdominal exam: Present: normal bowel sounds, soft. Absent: distended, tenderness - Extremities Exam Extremities exam: Absent: calf tenderness, edema - Neurological Exam Neurological exam: Present: alert, oriented X3 Speech: Present: normal - Skin Skin exam: Present: normal color Results - Labs CBC & BMP: 11/24/16 03:06 11/24/16 03:06 Labs: Bilirubin decreased 1.8 Quality Measures - VTE Deep Vein Thrombosis/Pulmonary Embolism Present on Admission: No Contraindication to Pharmacological VTE Prophylaxis: Already on Theraputic Agent , No Prophylaxis Needed
--- NOTE | 2016-11-24 13:17 | Cardiology Progress Note ---
Assessment and Plan (1) Pneumobilia Status: Acute Assessment and plan: It appears that his symptoms are probably related to his gallbladder. Surgical treatment is an option being considered. From a cardiac standpoint he is well compensated. I reviewed his echocardiogram which shows normal left ventricular function. He does not have any significant valvular dysfunction. From a cardiac standpoint I think he is low risk to proceed to surgery if needed. Current Visit: Yes (2) Chronic atrial fibrillation Status: Acute Assessment and plan: The patient has chronic atrial fibrillation which is well controlled on his current medical regimen. I do not see any reason to make any changes at this time. I think we can discontinue the monitoring tech. His cardiac status is well compensated and he has normal left ventricular function. I am going to drop off his case. Please give cardiology a call if we can be of further assistance in his management. He can follow-up with his primary classified ad clerk Dr. Moran after discharge on a routine basis. Current Visit: Yes (3) Gallstone Status: Acute Current Visit: Yes (4) Hypertension Status: Acute Assessment and plan: We can resume his usual home medications and make adjustments as needed. Current Visit: Yes (5) Diabetes Status: Acute Assessment and plan: We can resume his usual home medications and make adjustments as needed per Current Visit: Yes (6) Chronic anticoagulation Status: Acute Assessment and plan: He is on Pradaxa as an outpatient and this is been held pending the possibility of surgery. We can resume this when it is safe from a postoperative standpoint. Current Visit: Yes (7) Morbid obesity Status: Acute Current Visit: Yes (8) Elevated bilirubin Status: Acute Current Visit: Yes Cardiology - PN: Subj Interval history: The patient is feeling well today. He denies any cardiac symptoms such as palpitations or angina. His chief complaint today is actually of the telemetry monitoring which is giving him fits. He begged me to remove it. I reviewed all of his telemetry strips and vital signs. He has chronic atrial fibrillation and this is well controlled. I do not see any reason to continue the telemetry at this time. The patient's abdominal symptoms are also much better. He has eaten a couple of meals today and is not having any problems or symptoms. Current Medications Acetaminophen (Tylenol Tab) 650 mg PO Q6H PRN PRN Reason: Pain Mild (1-3) and/or Fever Albuterol/Ipratropium (Duoneb) 3 ml RESP TX RT Q4H PRN PRN Reason: Shortness of Breath/Wheezing Clonazepam (Klonopin) 0.5 mg PO TID [facility] Last Admin: 11/24/16 09:35 Dose: 0.5 mg Dextrose/Water (D50) 25 gm IV PRN PRN PRN Reason: Hypoglycemia with IV access Enoxaparin Sodium (Lovenox) 120 mg SUBCUT Q12H [facility] Last Admin: 11/24/16 01:27 Dose: 120 mg Glucagon () 1 mg IM PRN PRN PRN Reason: Hypoglycemia w/o IV access Piperacillin Sod/Tazobactam (Sod 3,375 mg/ Sodium Chloride) 100 mls @ 25 mls/ hr IV Q8H [facility] Last Admin: 11/24/16 09:42 Dose: 25 mls/hr Metronidazole/Sodium Chloride (500 mg/ Premix) 100 mls @ 100 mls/hr IV Q8H [facility] Last Admin: 11/24/16 06:10 Dose: 100 mls/hr Insulin Glargine (Lantus) 30 unit SUBCUT BEDTIME [facility] Last Admin: 11/23/16 20:42 Dose: 30 unit Insulin Human Lispro (Humalog) 0 unit SUBCUT Q6HR SAMANTHA PRN Reason: Protocol Last Admin: 11/24/16 06:39 Dose: Not Given Ondansetron HCl (Zofran Inj) 4 mg IV Q6H PRN PRN Reason: Nausea/Vomiting Pantoprazole Sodium (Protonix Tab) 40 mg PO DAILY [facility] Last Admin: 11/24/16 09:35 Dose: 40 mg Sertraline HCl (Zoloft) 100 mg PO DAILY [facility] Last Admin: 11/24/16 09:35 Dose: 100 mg Exam (Progress Note) - Constitutional Vitals: Period Temp Pulse Resp BP Sys/Pacheco Pulse Ox Last 24 Hr 96.7 F-98.8 F 83-98 18-20 106-142/57-78 91-97 Exam: General: Well-developed well-nourished, morbidly obese and in no acute distress HEENT: Normocephalic, atraumatic Neck: Supple Neck, Midline Trachea Cardiac: Irregular Rhythm, 1 out of 6 to 2 out of 6 systolic murmur, no gallop, no rub Lungs: Grossly Normal Exam, Clear to Ascultation, No Wheeze, Rales, Rhonchi Neuro: Cranial Nerve 2-12 Intact, grossly normal Abdomen: Soft, Active Bowel Sounds, No Masses, No Pulsations/Bruits Skin: Normal color, no rash Extremities: No Clubbing, No Cyanosis, No Edema, Normal Upper Extr. Pulses Musculoskeletal: No acute abnormality noted Psychiatric: The patient is alert and oriented and does not appear to be anxious or depressed. Result/EKG - Labs CBC & BMP: 11/24/16 03:06 11/24/16 03:06 Lab Results: I have reviewed the past 24 hour labs Labs: Laboratory Results - last 24 hr 11/23/16 11/23/16 11/23/16 12:02 18:17 20:08 WBC RBC Hgb Hct MCV MCH MCHC RDW Plt Count MPV Neut % (Auto) Lymph % (Auto) [place] % (Auto) Eos % (Auto) Baso % (Auto) Neut # (Auto) Lymph # (Auto) [place] # (Auto) Eos # (Auto) Baso # (Auto) Immature Gran % Nucleated RBC % Immature Gran # Nucleated RBCs # Immature Plt Fraction Sodium Potassium Chloride Carbon Dioxide Anion Gap BUN Creatinine GFR Calculation BUN/Creatinine Ratio Glucose POC Glucose 147 H 279 H 221 H Calculated Osmolality Calcium Total Bilirubin Direct Bilirubin Indirect Bilirubin AST ALT Alkaline Phosphatase Total Protein Albumin Urine Color Urine Appearance Urine pH Ur Specific [place] Urine Protein Urine Glucose (UA) Urine Ketones Urine Blood Urine Nitrate Urine Bilirubin Urine Urobilinogen Urine Leukocytes Urine WBC Ur Culture Indicated? Hepatitis A IgM Ab Hep Bs Antigen Hep B Core IgM Ab Hepatitis C Antibody 11/24/16 11/24/16 11/24/16 00:24 03:00 03:06 WBC 10.9 RBC 4.26 Hgb 12.4 L Hct 35.9 L MCV 84.3 L MCH 29 MCHC 34.5 RDW 14.3 Plt Count 295 MPV 10.1 Neut % (Auto) 70.9 Lymph % (Auto) 18.7 L [place] % (Auto) 7.6 Eos % (Auto) 1.8 Baso % (Auto) 0.5 Neut # (Auto) 7.7 H Lymph # (Auto) 2.0 [place] # (Auto) 0.8 Eos # (Auto) 0.2 Baso # (Auto) 0.1 Immature Gran % 0.5 Nucleated RBC % 0.0 Immature Gran # 0.05 Nucleated RBCs # 0.00 Immature Plt Fraction 0.0 Sodium Potassium Chloride Carbon Dioxide Anion Gap BUN Creatinine GFR Calculation BUN/Creatinine Ratio Glucose POC Glucose 109 H Calculated Osmolality Calcium Total Bilirubin Direct Bilirubin Indirect Bilirubin AST ALT Alkaline Phosphatase Total Protein Albumin Urine Color Yellow Urine Appearance Clear Urine pH 7.0 Ur Specific [place] 1.005 Urine Protein Negative Urine Glucose (UA) Negative Urine Ketones Negative Urine Blood Negative Urine Nitrate Negative Urine Bilirubin Negative Urine Urobilinogen 2.0 H Urine Leukocytes Negative Urine WBC <1 Ur Culture Indicated? Not indicated Hepatitis A IgM Ab Hep Bs Antigen Hep B Core IgM Ab Hepatitis C Antibody 11/24/16 11/24/16 11/24/16 03:06 03:06 06:16 WBC RBC Hgb Hct MCV MCH MCHC RDW Plt Count MPV Neut % (Auto) Lymph % (Auto) [place] % (Auto) Eos % (Auto) Baso % (Auto) Neut # (Auto) Lymph # (Auto) [place] # (Auto) Eos # (Auto) Baso # (Auto) Immature Gran % Nucleated RBC % Immature Gran # Nucleated RBCs # Immature Plt Fraction Sodium 135 L Potassium 3.8 Chloride 100 Carbon Dioxide 27 Anion Gap 11.8 BUN 13 Creatinine 1.10 GFR Calculation 90 BUN/Creatinine Ratio 11.00 Glucose 86 POC Glucose 107 H Calculated Osmolality 268.1 L Calcium 8.2 L Total Bilirubin 1.80 H Direct Bilirubin 0.510 H Indirect Bilirubin 1.3 H AST 18 ALT 18 Alkaline Phosphatase 78 Total Protein 6.1 L Albumin 3.1 L Urine Color Urine Appearance Urine pH Ur Specific [place] Urine Protein Urine Glucose (UA) Urine Ketones Urine Blood Urine Nitrate Urine Bilirubin Urine Urobilinogen Urine Leukocytes Urine WBC Ur Culture Indicated? Hepatitis A IgM Ab Negative Hep Bs Antigen Negative Hep B Core IgM Ab Negative Hepatitis C Antibody Negative 11/24/16 10:46 WBC RBC Hgb Hct MCV MCH MCHC RDW Plt Count MPV Neut % (Auto) Lymph % (Auto) [place] % (Auto) Eos % (Auto) Baso % (Auto) Neut # (Auto) Lymph # (Auto) [place] # (Auto) Eos # (Auto) Baso # (Auto) Immature Gran % Nucleated RBC % Immature Gran # Nucleated RBCs # Immature Plt Fraction Sodium Potassium Chloride Carbon Dioxide Anion Gap BUN Creatinine GFR Calculation BUN/Creatinine Ratio Glucose POC Glucose 238 H Calculated Osmolality Calcium Total Bilirubin Direct Bilirubin Indirect Bilirubin AST ALT Alkaline Phosphatase Total Protein Albumin Urine Color Urine Appearance Urine pH Ur Specific [place] Urine Protein Urine Glucose (UA) Urine Ketones Urine Blood Urine Nitrate Urine Bilirubin Urine Urobilinogen Urine Leukocytes Urine WBC Ur Culture Indicated? Hepatitis A IgM Ab Hep Bs Antigen Hep B Core IgM Ab Hepatitis C Antibody - EKG EKG results: interpreted by me Quality Measures - VTE Deep Vein Thrombosis/Pulmonary Embolism Present on Admission: No Contraindication to Pharmacological VTE Prophylaxis: Already on Theraputic Agent , No Prophylaxis Needed
--- NOTE | 2016-11-24 16:14 | Gastrointestinal Progress Note ---
Assessment and Plan - Time spent with patient Time spent with patient: Greater than 30 minutes (1) Fatty liver Status: Acute Current Visit: Yes (2) Pneumobilia Status: Acute Current Visit: Yes (3) Gallstone Status: Acute Current Visit: Yes (4) Elevated bilirubin Status: Acute Assessment and plan: PLEASE NOTE -- automatic citation of patient information is unavoidable in this electronic note. I have made a reasonable effort to review the information cited , but it is not a part of my evaluation, impression, or recommendation unless specifically discussed in the dictated text that follows. As well, voice recognition software was used in the creation of this clinical note. Reasonable effort was made to identify and correct gross errors. Despite proofreading, errors in bulb brander may be present, including nonsense verbiage at times. If you encounter such an error, please contact me at for discussion and correction. -- Micah Chief complaint: Pneumobilia and gallstones, concerning for gas producing bacteria with resolved ascending cholangitis 24 hour events: Patient seen again by surgery, no acute events Subjective: Mr. Nik garcia states that his abdominal pain continues to be resolved, appetite is okay, but not great, has not returned to normal eating state. Overall just states he "does not feel that well." Medications: Reviewed, has been holding Pradaxa since Thursday, treatment dose Lovenox not given today at 1300. REVIEW OF SYSTEMS: Complete other review of systems negative except as noted in the HPI PHYSICAL EXAMINATION: CONSTITUTIONAL: Vital signs reviewed as documented above. In no acute distress. Nontoxic-appearing, but can tell overall he does not feel that well. EYES: Anicteric conjunctiva. Extra-ocular movements are intact and symmetric. EARS: Able to hear speech at conversational volume level, no external trauma/ masses. MOUTH: No oral/mouth lesions or ulcers. NECK: No masses or crepitus. Thyroid is of normal size and symmetric. LUNGS:. No increased work of breathing or accessory muscle use. GI/ABDOMEN: Obese abdomen, soft, nontender to palpation, SKIN: No rash on face, arms, or hands. No palpable lesions MUSCULOSKELETAL: Normal gait. Muscle tone appears normal without any abnormal movements. PSYCH: Normal affect. Alert and oriented to person, place, and time. Laboratory: Personally reviewed Creatinine 1.1 today Continued improvement in WBC. Hgb and plt normal. neutrophil predominance approximately 75% A1c 8.8 Liver associated enzymes: total bilirubin 2.6, improved to 1.5 today Lipase 65 Albumin 3.4, total protein 6.5 Radiology: Personally reviewed reports. No new imaging today Gallbladder ultrasound from 11/22/16: Liver slightly enlarged and demonstrates diffuse increase in echogenicity. Gallbladder with multiple shadowing stones with layering sludge. Echogenic foci within posterior shadowing likely represents air is demonstrated on recent CT. Mild circumferential gallbladder wall thickening. Common bile duct is nondilated. Pancreas unremarkable. Findings concerning for emphysematous cholecystitis. Abdomen pelvis CT from 11/22/16: Significant for calcified stones within a nondistended gallbladder. No ductal dilation. Air present within the gallbladder and biliary tree. Infection with gas producing organism cannot be excluded. Pancreas is normal. Liver with fatty infiltration. Stomach and bowel with no evidence of acute gastritis, colitis, enteritis. No bowel obstruction. No evidence of appendicitis. No free intraperitoneal fluid or air. Atheromatous calcifications noted along the aorta and branch vessels. No adenopathy. Chest CT from 11/22/16: No PE, no acute intrathoracic abnormality, + cholelithiasis Assessments: #Pneumobilia: Air within the gallbladder, hepatic ducts, common bile duct. Bilirubin elevated to 2.6, now improved to 1.5 with clinical improvement. Significant leukocytosis, improved with antibiotics. No clear obstruction on current imaging, but suspicious symptoms leading up to admission including fever , complete food aversion, I do believe this is likely an air producing infection of the biliary tree, that may no longer be a contained ascending colangitis clinically. May have been due to transient choledocholithiasis, without any evidence of retained stone currently on imaging, as there is no stone seen, and no common bile duct dilation, and symptoms have now resolved. #cholelithiasis: with possible choledocholithiasis, intermittent obstruction with ascending infection. #Fatty liver: Without evidence of hepatitis #Other specified counseling -- The patient was seen for greater than 30 minutes. The patient was counseled for greater than 50% of this time regarding differential diagnosis, likely diagnosis, diagnostic and therapeutic alternatives, risks/benefits/alternatives of medications and procedures, and plan of care generally. The patient expressed understanding and wishes to proceed. Recommendations: -Continue patient on antibiotic course per primary service -Discussed case with Dr. Juarez today, who agrees that it is reasonable to perform ERCP tomorrow. Patient has been off of his Pradaxa for greater than 48 hours with normal renal function, as well as treatment dose Lovenox for greater than 24 hours as of tomorrow morning, thus bleeding risk should be average. Patient's Lovenox has been held for this afternoon, tomorrow morning, n.p.o. except for meds at midnight, and order for procedure with Dr. Juarez. -Dr. Amado to determine surgical intervention acute versus elective based on ERCP results. Patient is very open to cholecystectomy today. -Weight loss counseling given 11/23/2016 for fatty liver disease performed today with patient and family, recommend 10% weight loss, approximately 35 pounds for this patient, 1-2 pounds per week, this can be done by increased caloric burning , reduce caloric intake, and increasing muscle mass to increase caloric burning at rest iDlia Obrien MD, MPH STAFF SERVICE MEMBER Current Visit: Yes Exam (Progress Note) - Constitutional Vitals: Period Temp Pulse Resp BP Sys/Pacheco Pulse Ox Last 24 Hr 96.7 F-98.8 F 83-98 18-20 106-142/57-78 91-97 Results - Labs CBC & BMP: 11/24/16 03:06 11/24/16 03:06
[2016-11-24] MEDS: INSULIN GLARGINE 100 UNIT/ML SUBCUT SCH (21:33)
[2016-11-25] MEDS: INSULIN LISPRO 100 UNIT/ML SUBCUT SCH ×4 (00:54→19:06)
[2016-11-25] MEDS: PIPERACILLIN/TAZOBACTAM 3,375 MG in SODIUM CHLORIDE 0.9% 100 ML IV SCH ×3 (02:58→17:58)
[2016-11-25] MEDS: metroNIDAZOLE INJ 500 MG in PREMIX 1 EACH IV SCH ×4 (05:41→21:39)
[2016-11-25 07:33] LABS: Albumin 2.8 G/DL (3.4-5.0); Bilirubin,Direct 0.47 MG/DL (0.0-0.20); Bilirubin,Indirect 1.1 MG/DL (0.0-1.0); Bilirubin,Total 1.6 MG/DL (0.2-1.0); Total Protein 5.8 G/DL (6.4-8.3)
[2016-11-25] MEDS: clonazePAM 0.5 MG TABLET PO SCH ×3 (09:02→21:36)
[2016-11-25 09:05] LABS: Basophils % 0.5 % (0.0-0.8); Eosinophils # 0.2 10*3/uL (0.0-0.87); Eosinophils % 2.5 % (0.00-10.9); Hematocrit 33.9 VOL% (42.0-52.0); Hemoglobin 11.5 GM/DL (14.0-18.0); Immature Granulocytes % 0.8 %; Immature Granulocytes Absolute 0.06 #; Lymphocytes # 1.3 10*3/uL (1.4-4.0); Lymphocytes % 16.7 % (21.2-54.2); Mean Corpuscular HGB Conc 33.9 GM/DL (32-36); Mean Corpuscular Hemoglobin 29 PG (27-34); Mean Corpuscular Volume 85.8 FL (87-102); Mean Platelet Volume 9.9 FL (9.6-12.0); Monocytes # 0.8 10*3/uL (0.11-0.8); Monocytes % 10.3 % (1.7-12.7); Neutrophils # 5.3 10*3/uL (1.4-7.4); Neutrophils % 69.2 % (38.7-73.9); Platelet Count 273 T/CUMM (130-400); Red Blood Count 3.95 MC/CUMM (3.8-5.5); Red Cell Distribution Width 14.4 % (9.3-17.3); White Blood Count 7.6 T/CUMM (4-12)
[2016-11-25 09:28] LABS: INR 1.2; PT Patient Result 12.4 SECS
--- NOTE | 2016-11-25 10:38 | Hospitalist Progress Note ---
Assessment and Plan (1) Hyponatremia Status: Acute Assessment and plan: 1)hyponatremia- chronic, improved to 135 2)chronic afib on anticoagulation 3)pneumobilia- for ERCP this morning. 4)morbid obesity 5)HTN- remains controlled but home meds not restarted yet. 6)DM- glucose 107-318. Continue current reduced dose of lantus with SSI since he is not eating regularly at this time 7)anxiety- on Zoloft and clonazepam as he takes them at home. If he can't have his clonazepam this morning because of procedure, we can use small dose of ativan IV. Current Visit: Yes (2) suspect YARA Status: Acute Current Visit: Yes (3) Pneumobilia Status: Acute Current Visit: Yes (4) Hypertension Status: Acute Current Visit: Yes (5) Diabetes Status: Acute Current Visit: Yes (6) Chronic atrial fibrillation Status: Acute Current Visit: Yes (7) Chronic anticoagulation Status: Acute Current Visit: Yes (8) Morbid obesity Status: Acute Current Visit: Yes Hospitalist: Subjective Interval history: Mr Casey is feeling good, but worried about being NPO and missing his clonazepam this morning in preparation for ERCP. His nurse will call GI lab to find out when he is scheduled and confirm with anesthesia that he can have the clonazepam before we give it. Denies abdominal pain. Exam - Constitutional Vitals: Period Temp Pulse Resp BP Sys/Pacheco Pulse Ox Last 24 Hr 96.7 F-100.0 F 80-104 18-20 112-134/69-86 94-97 General appearance: no acute distress, morbidly obese - Eye Eye exam: Present: EOMI. Absent: scleral icterus - Respiratory Respiratory exam: Present: clear to auscultation bilaterally - Cardiovascular Cardiovascular exam: Present: regular rate and rhythm - GI/Abdominal GI/Abdominal exam: Present: normal bowel sounds, soft. Absent: tenderness - Extremities Exam Extremities exam: Present: edema (trace) - Neurological Exam Neurological exam: Present: alert, oriented X3 - Skin Skin exam: Present: warm, dry Results - Labs CBC & BMP: 11/25/16 06:21 11/24/16 03:06 Lab Results: I have reviewed the past 24 hour labs Quality Measures - VTE Deep Vein Thrombosis/Pulmonary Embolism Present on Admission: No Contraindication to Pharmacological VTE Prophylaxis: Already on Theraputic Agent , No Prophylaxis Needed
[2016-11-25] MEDS ORDERED: fentaNYL 100 MCG/2 ML VIAL ONE (12:38)
[2016-11-25] MEDS ORDERED: MIDAZOLAM 2 MG/2 ML VIAL ONE (12:39)
[2016-11-25] MEDS ORDERED: PROPOFOL 200 MG/20 ML VIAL IV ONE (12:44)
[2016-11-25] MEDS ORDERED: ETOMIDATE 20 MG/10 ML VIAL IV ONE (12:44)
[2016-11-25] MEDS ORDERED: ONDANSETRON 4 MG/2 ML VIAL ONE (12:44)
[2016-11-25] MEDS ORDERED: LIDOCAINE 2% 5 ML VIAL ONE (12:44)
[2016-11-25] MEDS ORDERED: SUCCINYLCHOLINE 200 MG/10 ML VIAL ONE (12:44)
--- NOTE | 2016-11-25 12:59 | General Surgery Progress Note ---
Assessment and Plan (1) Elevated bilirubin Status: Acute Assessment and plan: Continues to improve. Recheck in a.m. Current Visit: Yes (2) Fatty liver Status: Acute Assessment and plan: Recs per gastroenterology upon discharge. Current Visit: Yes (3) Pneumobilia Status: Acute Assessment and plan: A ERCP pending for today. Bilirubin continues to decrease. Fever overnight. We will follow-up on ERCP results for additional recommendation. Continue IV antibiotics. Diarrhea: Will check C. difficile Current Visit: Yes Subjective Patient reports: Present: other (Afebrile. No abdominal pain, nausea or vomiting. Patient reports development of diarrhea as only complaint. T-max overnight 100.) Exam - Constitutional Vitals: Period Temp Pulse Resp BP Sys/Pacheco Pulse Ox Last 24 Hr 96.8 F-100.0 F 80-104 16-20 112-162/69-99 94-97 General appearance: no acute distress, morbidly obese - GI/Abdominal GI/Abdominal exam: Present: normal bowel sounds, soft. Absent: distended, tenderness - Neurological Exam Neurological exam: Present: alert, oriented X3 Speech: Present: normal Results - Labs CBC & BMP: 11/25/16 06:21 11/24/16 03:06 Labs: Bilirubin decreased to 1.6 Quality Measures - VTE Deep Vein Thrombosis/Pulmonary Embolism Present on Admission: No Contraindication to Pharmacological VTE Prophylaxis: Already on Theraputic Agent , No Prophylaxis Needed
--- NOTE | 2016-11-25 13:41 | History and Physical Update ---
History and Physical Update - Physical Exam Mental Status: alert and oriented Heart: regular rate and rhythm Lung: clear to auscultation Abdomen: within normal limits Vitals: within normal limits History and Physical Changes: 76-year-old male is admitted with upper abdominal pain. He was found to have hyperbilirubinemia with cholelithiasis and also pneumobilia on imaging. Common bile duct was mildly dilated at 7 mm.
--- NOTE | 2016-11-25 13:49 | Operative Note ---
Date of procedure: 11/25/16 Pre-op diagnosis: Hyperbilirubinemia, gallstones, pneumobilia Procedure: Procedure: Endoscopic retrograde cholangiopancreatography with common bile duct sphincterotomy and common bile duct sludge removal Brief medical abstract: Patient is a 76-year-old man admitted with upper abdominal pain. He was found to have hyperbilirubinemia and on imaging had cholelithiasis with pneumobilia. Common bile duct was mildly dilated at 7 mm. Procedure findings: After informed consent was obtained, patient was placed in the prone position. Diagnostic video duodenoscope was inserted into the upper esophagus in blind fashion with no resistance encountered. Esophageal mucosa appeared normal. Stomach was examined including retroflexed view of the cardia/ fundus with no abnormality seen. The pyloric channel and duodenal bulb appeared normal. Second and third portion of the duodenum were examined. Patient had a fairly large size periampullary diverticulum. Ampulla had normal appearance. It was difficult to maintain scope position near the ampulla. Sphincterotome was used and initially pancreatogram obtained with feeling of head, neck, body, and tail revealing no abnormality. The endoscope was repositioned. Deep cannulation of the common bile duct was achieved. Biliary tree was filled with contrast. Right and left intrahepatic systems appeared normal. Cystic duct was patent. Patient had 3 large visible stones in the gallbladder which were greater than 1.5 cm diameter each. There appeared to be filling defect in the distal common bile duct with visibility limited by his increased body habitus. Common bile duct was dilated to 7-8 mm maximally. Common bile duct sphincterotomy to over 1 cm diameter was performed with 0.035 inch guidewire located in the intrahepatic system. Occlusion balloon was then advanced over the wire after sphincterotome was removed. This was inflated to 12 mm diameter at the proximal common hepatic duct and dragged distally into the duodenum. A fairly large amount of sludge material was noted on the balloon passing into the duodenum. 3 further passes were made and an occlusion cholangiogram obtained with final pass revealing no residual filling defects. The endoscope was then removed. There was excellent drainage through the sphincterotomy opening noted on fluoroscopy. He appeared to tolerate the procedure well. Impression: #1 common bile duct sludge-status post endoscopic removal #2 dilated common bile duct #3 cholelithiasis #4 periampullary diverticulum Recommendations: Cholecystectomy as planned. Anesthesia: MAC Surgeon / Physician: Jh Juarez Estimated blood loss: minimal Specimens: none sent Condition: stable Disposition: post procedure unit Results - Labs CBC & BMP: 11/25/16 06:21 11/24/16 03:06 Discharge Plan - Discharge Medications No Action Insulin Glargine,Hum.rec.anlog [Lantus SoloStar] 50 unit SUBCUT QPM Furosemide Tab [Lasix Tab] 40 mg PO DAILY Sertraline [Zoloft] 100 mg PO DAILY Carvedilol 3.125 mg PO BID Atorvastatin [Lipitor] 40 mg PO MOWEFR Dabigatran [Pradaxa] 150 mg PO BID clonazePAM [Clonazepam] 0.5 mg PO TID Oxycodone HCl/Acetaminophen [Oxycodon-Acetaminophen 7.5-325] 1 - 2 each PO Q6HR PRN #30 tablet PRN Reason: Pain Insulin Glargine [Lantus] 68 unit SUBCUT AC SUPPER - Follow Up or Referral - Forms/Instructions
--- NOTE | 2016-11-25 14:13 | Anesthesia Post-Op ---
Anesthesia Post OP - Post Ansesthetic Evaluation Patient seen in post op: Yes Resp: within normal limits CV: within normal limits Mental: within normal limits Temp: within normal limits [id number]: within normal limits Nausea and Vomiting: within normal limits Pain: within normal limits
--- NOTE | 2016-11-25 15:10 | Fluoroscopy Report ---
History: Hyperbilirubinemia, gallstones Date: 11/25/2016 Study: ERCP with sphincterotomy Comparison exam: No previous ERCP films available Contrast material was injected into the pancreatic and common bile ducts in a retrograde fashion via endoscopy by Dr. Stoney Juarez. 5 minutes 34 seconds fluoroscopy time was utilized. 50 mL Omnipaque 240 contrast was used. 26 images were captured and archived. The pancreatogram is normal without mass or stricture. The common bile duct is normal in caliber on the initial images, though there is a vague ill-defined filling defect in the distal common bile duct. The opacified hepatic ducts appear normal without mass or stricture. There is reflux of contrast material into the gallbladder with 3 large gallstones all measuring over 1 cm. Images document performance of passage of a balloon catheter through the common bile duct following sphincterotomy. There is no definite residual filling defect within the common bile duct on the final images. Impression: Cholelithiasis. Probable sludge/debris and potential small choledochal stones in the distal common bile duct on the initial images, which are not visualized after sphincterotomy and passage of balloon catheter PROCEDURE INTERPRETED AT [facility] DEPARTMENT OF RADIOLOGY Final Report Signed by: Dr. Wen Juarez
[2016-11-25] MEDS: PANTOPRAZOLE 40 MG TABLET PO SCH (15:49)
[2016-11-25] MEDS: SERTRALINE 100 MG TABLET PO SCH (15:50)
--- NOTE | 2016-11-25 18:26 | Event Note ---
Patient sitting up at bedside after ERCP earlier today. He denies abdominal pain or nausea and is tolerating liquids well. Abdomen is soft and nontender. I will sign off. Please call if needed.
--- NOTE | 2016-11-25 19:25 | Sleep Medicine Consult ---
Assessment and Plan (1) suspect YARA Status: Acute Assessment and plan: I agree with the suspicion for obstructive sleep apnea in this patient and do think that he needs sleep evaluation. I have recommended sleep evaluation. We could start with home sleep testing tomorrow night if he remains hospitalized. The patient did decline but was polite in doing so. He simply just feels like he has had too much done to him and does not want any further evaluation from a sleep standpoint. We certainly are happy to follow-up with him in the sleep clinic if further evaluation is desired. Thank you for this consult. Current Visit: Yes (2) Hypertension Status: Acute Assessment and plan: The prevalence rate for obstructive sleep apnea patients with hypertension is 35 %. That rate can be as high as 80% in patients who require 4 or more medications for blood pressure control. Current Visit: Yes (3) Diabetes Status: Acute Assessment and plan: The prevalence rate for obstructive sleep apnea in patients with type 2 diabetes can be as high as 86%. Those patients with moderate to severe obstructive sleep apnea are at a greater risk for diabetic nephropathy and neuropathy. Compliance with CPAP therapy for these patients can lead to improvement in glycemic control and improvement in insulin sensitivity. Current Visit: Yes (4) Chronic atrial fibrillation Status: Acute Assessment and plan: The prevalence for obstructive sleep apnea can be as high as 80% in patients with atrial fib. Control of underlying obstructive sleep apnea can decrease recurrence by almost 50%. Current Visit: Yes History of Present Illness Chief complaint: Sleep apnea History of present illness: Mr. Casey is a 76 year old male with significant past medical history that includes chronic atrial fib. He is followed by Dr. Moran who is been after him for years to have sleep evaluation. He has declined multiple times. He does have a history of snoring but denies any significant problems with awakening from sleep short of breath or having daytime fatigue and sleepiness. He does awaken about once or twice a night to urinate and states that he usually feels refreshed. He does have significant chronic health issues that include A. fib, hypertension, and diabetes. Home Medications Medication Instructions Recorded Confirmed Type Atorvastatin [Lipitor] 40 mg PO MOWEFR 09/26/15 11/22/16 History Carvedilol 3.125 mg PO BID 09/26/15 11/22/16 History Dabigatran [Pradaxa] 150 mg PO BID 09/26/15 11/22/16 History Furosemide Tab [Lasix Tab] 40 mg PO DAILY 09/26/15 11/22/16 History Insulin Glargine,Hum.rec.anlog 50 unit SUBCUT QPM 09/26/15 11/22/16 History [Lantus SoloStar] Oxycodone HCl/Acetaminophen 1 - 2 each PO Q6HR PRN #30 tablet 09/26/15 11/22/16 Rx [Oxycodon-Acetaminophen 7.5-325] Sertraline [Zoloft] 100 mg PO DAILY 09/26/15 11/22/16 History clonazePAM [Clonazepam] 0.5 mg PO TID 09/26/15 11/22/16 History Insulin Glargine [Lantus] 68 unit SUBCUT AC SUPPER 11/22/16 11/22/16 History Allergies Allergy/AdvReac Type Severity Reaction Status Date / Time hydrocodone Allergy Verified 09/26/15 16:07 Review of systems: Otherwise unremarkable from a sleep medicine standpoint. Exam (Pulmonay) H&P - Constitutional Vitals: Period Temp Pulse Resp BP Sys/Pacheco Pulse Ox Last 24 Hr 96.7 F-100.0 F 80-108 16-25 95-162/48-99 92-97 Exam: He is alert and responsive in no acute distress. Pupils equal round reactive to light and accommodation. Extraocular movements intact. Oropharynx with a class III Mallampati exam. Neck is supple without adenopathy or thyromegaly. No supraclavicular adenopathy is noted. Chest with symmetrical breath sounds without focal wheeze, rhonchi, or rales. Cardiac exam reveals a regular rhythm without murmur or gallop. Abdomen obese nontender without palpable hepatosplenomegaly or mass. Extremities with trace pitting edema bilaterally. Neurologically, he is grossly intact. He moves all extremities with good strength. Medical,Surgical,& Family Hx - Medical History Cardio: History of: Cardiac Dysrhythmia (afib), CHF, Hypertension Neurology: No history of: Seizures Endocrine: History of: Diabetes Mellitus (IDDM) Respiratory: History of: Bronchitis, Pneumonia Reproductive: Reports: Reproductive Cancer (prostate) - Surgical History HEENT Surgeries: Surgical HX of: Tonsilectomy & Adenoidectomy Orthopedic Surgeries: Surgical HX of;: Orthopedic Surgery (partial amputation of left ring finger) - Social History Smoking Status: Never smoker Frequency of Alcohol Use: None Type of Drug Use: None Results - Labs CBC & BMP: 11/25/16 06:21 11/24/16 03:06 Lab Results: I have reviewed the past 24 hour labs Quality Measures - VTE Deep Vein Thrombosis/Pulmonary Embolism Present on Admission: No Contraindication to Pharmacological VTE Prophylaxis: Already on Theraputic Agent , No Prophylaxis Needed
[2016-11-25] MEDS ORDERED: ALUMINUM/MAGNES/SIMETH MAX STR 30 ML UDCUP PO ONE (21:35)
[2016-11-25] MEDS: INSULIN GLARGINE 100 UNIT/ML SUBCUT SCH (21:36)
[2016-11-26] MEDS: PIPERACILLIN/TAZOBACTAM 3,375 MG in SODIUM CHLORIDE 0.9% 100 ML IV SCH ×2 (01:14→09:19)
[2016-11-26] MEDS: INSULIN LISPRO 100 UNIT/ML SUBCUT SCH ×4 (01:14→18:32)
[2016-11-26] MEDS: ONDANSETRON 4 MG/2 ML VIAL IV PRN ×2 (01:15→08:45)
[2016-11-26 03:37] LABS: Basophils # 0.1 10*3/uL (0.0-0.2); Basophils % 0.5 % (0.0-0.8); Eosinophils # 0.1 10*3/uL (0.0-0.87); Eosinophils % 1.1 % (0.00-10.9); Hematocrit 34.5 VOL% (42.0-52.0); Hemoglobin 11.5 GM/DL (14.0-18.0); Immature Granulocytes % 0.7 %; Immature Granulocytes Absolute 0.07 #; Lymphocytes % 10.1 % (21.2-54.2); Mean Corpuscular HGB Conc 33.3 GM/DL (32-36); Mean Corpuscular Hemoglobin 29 PG (27-34); Mean Corpuscular Volume 85.6 FL (87-102); Mean Platelet Volume 9.5 FL (9.6-12.0); Monocytes # 0.8 10*3/uL (0.11-0.8); Neutrophils # 7.7 10*3/uL (1.4-7.4); Neutrophils % 79.6 % (38.7-73.9); Platelet Count 286 T/CUMM (130-400); Red Blood Count 4.03 MC/CUMM (3.8-5.5); Red Cell Distribution Width 14.3 % (9.3-17.3); White Blood Count 9.7 T/CUMM (4-12)
[2016-11-26 04:05] LABS: Albumin 2.9 G/DL (3.4-5.0); Bilirubin,Direct 1.16 MG/DL (0.0-0.20); Bilirubin,Indirect 1.5 MG/DL (0.0-1.0); Bilirubin,Total 2.7 MG/DL (0.2-1.0); Total Protein 5.8 G/DL (6.4-8.3)
[2016-11-26] MEDS: metroNIDAZOLE INJ 500 MG in PREMIX 1 EACH IV SCH ×3 (05:16→21:34)
[2016-11-26] MEDS: PANTOPRAZOLE 40 MG TABLET PO SCH (08:45)
[2016-11-26] MEDS: clonazePAM 0.5 MG TABLET PO SCH ×3 (08:46→20:41)
[2016-11-26] MEDS: SERTRALINE 100 MG TABLET PO SCH (08:46)
[2016-11-26] MEDS ORDERED: MORPHINE 2 MG/1 ML SYRINGE IV PRN (10:15)
[2016-11-26] MEDS ORDERED: ALUMINUM/MAGNES/SIMETH MAX STR 30 ML UDCUP PO PRN (10:18)
--- NOTE | 2016-11-26 10:25 | General Surgery Progress Note ---
Assessment and Plan (1) Pneumobilia Status: Acute Assessment and plan: Status post ERCP with sphincterotomy and extraction of biliary sludge. Plan for cholecystectomy likely in the morning. The risks of this procedure were reviewed with patient including but not limited to incomplete or no relief of his symptoms, injury to adjacent structures, infection, bleeding, bowel obstruction, adhesions, the need for additional procedures, wound healing complications, the possibility to require an open procedure, heart attack, pneumonia, stroke, reactions to medications, and other unforeseeable cardiac, pulmonary and/or neurologic events. Patient was understanding of these risks and agrees to proceed with procedure. With patient's new symptoms, we will modify his pain medications as well as add Maalox. I have notified gastroenterology of change in his symptoms request evaluation. Dr. Amado to follow. Diarrhea: C. difficile is negative. Further recommendations per medicine and gastroenterology teams. Assistance appreciated. Current Visit: Yes (2) Elevated bilirubin Status: Acute Assessment and plan: Increased post ERCP. Recheck in am. Current Visit: Yes (3) Fatty liver Status: Acute Assessment and plan: Recs per gastroenterology upon discharge. Current Visit: Yes Subjective Patient reports: Present: other (Patient ERCP yesterday. Patient reports having abdominal pain and indigestion overnight. He localizes pain across the epigastric region and in the right upper quadrant; this is new as he has been pain-free for the past 2-3 days. He reports persistent diarrhea.) Exam - Constitutional Vitals: Period Temp Pulse Resp BP Sys/Pacheco Pulse Ox Last 24 Hr 96.7 F-97.9 F 80-108 16-25 95-162/48-99 92-96 General appearance: no acute distress - Head Head exam: Present: normocephalic - Eye Eye exam: Absent: scleral icterus - Respiratory Respiratory exam: Present: clear to auscultation bilaterally - Cardiovascular Cardiovascular exam: Present: RRR - GI/Abdominal GI/Abdominal exam: Present: normal bowel sounds, tenderness (mild tenderness in epigastric region and RUQ; (-) Kate), soft, other (obese). Absent: distended , guarding - Extremities Exam Extremities exam: Absent: calf tenderness, edema - Neurological Exam Neurological exam: Present: alert, oriented X3 Speech: Present: normal - Skin Skin exam: Present: normal color Results - Labs CBC & BMP: 11/26/16 02:59 09/04/17 03:06 Labs: LFTs reviewed and slightly elevated bilirubin 2.7 Quality Measures - VTE Deep Vein Thrombosis/Pulmonary Embolism Present on Admission: No Contraindication to Pharmacological VTE Prophylaxis: Already on Theraputic Agent , No Prophylaxis Needed
--- NOTE | 2016-11-26 10:35 | Gastrointestinal Progress Note ---
Assessment and Plan (1) Elevated bilirubin Status: Acute Assessment and plan: /-post ERCP on yesterday with new onset of abdominal pain with nausea today. Lipase levels at 76. Afebrile, no leukocytosis. Cholecystectomy postponed at this time due to pain. LFTs slightly elevated today. Obtain flat and erect of abdomen. Continue to monitor present time. Plan an addendum to followed by Dr. Juarez. Current Visit: Yes Gastroenterology - PN: Subj Interval history: CC: Abdominal pain Patient is seen awake and alert, post ERCP on yesterday. Initially, postprocedure he did well with no abdominal pain or other complaints. Patient states that earlier this morning he had onset of left upper quadrant pain and tenderness as well as some nausea without vomiting. He also states that he has had some increased bloating in his abdomen. Lipase was checked this morning is 76. LFTs are slightly elevated today with bilirubin 2.7, AST 83, alkaline phosphatase 152. Abdomen is soft, tender to palpation primarily in left upper quadrant. ROS: Denies shortness breath or chest pain Exam (Progress Note) - Constitutional Vitals: Period Temp Pulse Resp BP Sys/Pacheco Pulse Ox Last 24 Hr 96.7 F-97.9 F 80-108 16-25 95-162/48-99 92-96 General appearance: normal weight, no acute distress - Head Head exam: Present: normal inspection, normocephalic - Eye Eye exam: Present: other (Lids and conjunctive are unremarkable). Absent: scleral icterus - ENT ENT exam: Present: normal exam, normal oropharynx - Neck Neck exam: Present: normal inspection - Respiratory Respiratory exam: Present: clear to auscultation bilaterally. Absent: rales, rhonchi, wheezes - Cardiovascular Cardiovascular exam: Present: regular rate and rhythm. Absent: diastolic murmur , JVD, systolic murmur - GI/Abdominal GI/Abdominal exam: Present: normal bowel sounds, tenderness, soft. Absent: ascites, distended, mass, organomegaly - Extremities Exam Extremities exam: Present: normal inspection, full ROM - Back Exam Back exam: Present: normal inspection - Neurological Exam Neurological exam: Present: alert, oriented X3 - Psychiatric Psychiatric exam: Present: normal affect, normal mood - Skin Skin exam: Present: normal color, warm, dry Results - Labs CBC & BMP: 11/26/16 02:59 09/04/17 03:06 Lab Results: I have reviewed the past 24 hour labs
--- NOTE | 2016-11-26 11:13 | Hospitalist Progress Note ---
Assessment and Plan (1) Hyponatremia Status: Acute Assessment and plan: 1)hyponatremia- chronic, improved to 135, recheck tomorrow. 2)chronic afib- anticoagulation on hold. takes pradaxa as outpatient. 3)pneumobilia- ERCP had large stones and sludge. plans are for cholecystectomy tomorrow if his pain improves, otherwise he may need CT scan first per my discussion with Dr Amado. Continue cipro and flagyl. cultures negative of blood from ER. 4)morbid obesity 5)HTN- remains controlled but home meds not restarted yet. 6)DM- glucose 134-246. Continue current reduced dose of lantus with SSI since he is not eating regularly at this time 7)anxiety- on Zoloft and clonazepam as he takes them at home. If he can't have his clonazepam this morning because of procedure, we can use small dose of ativan IV. 8)dvt ppx- on lovenox. Current Visit: Yes (2) suspect YARA Status: Acute Current Visit: Yes (3) Pneumobilia Status: Acute Current Visit: Yes (4) Hypertension Status: Acute Current Visit: Yes (5) Diabetes Status: Acute Current Visit: Yes (6) Chronic atrial fibrillation Status: Acute Current Visit: Yes (7) Chronic anticoagulation Status: Acute Current Visit: Yes (8) Morbid obesity Status: Acute Current Visit: Yes Hospitalist: Subjective Interval history: Mr Casey is in pain this morning. It started last night and is associated with nausea but no vomiting. He has also continued to have diarrhea. His stool is negative for cdiff. GI and general surgery have seen him this morning and I discussed the case with Dr Amado to coordinate care. We will stop Zosyn and add cipro to the flagyl. Also use immodium for diarrhea since cdiff is negative. Abdominal films pending. Exam - Constitutional Vitals: Period Temp Pulse Resp BP Sys/Pacheco Pulse Ox Last 24 Hr 96.7 F-98.8 F 80-113 16-25 95-162/48-99 90-96 General appearance: no acute distress, morbidly obese - Eye Eye exam: Present: EOMI. Absent: scleral icterus - Respiratory Respiratory exam: Present: clear to auscultation bilaterally - Cardiovascular Cardiovascular exam: Present: regular rate and rhythm - GI/Abdominal GI/Abdominal exam: Present: normal bowel sounds, tenderness, soft - Extremities Exam Extremities exam: Absent: edema - Neurological Exam Neurological exam: Present: alert, oriented X3 - Skin Skin exam: Present: warm, dry Results - Labs CBC & BMP: 11/26/16 02:59 11/24/16 03:06 Lab Results: I have reviewed the past 24 hour labs Quality Measures - VTE Deep Vein Thrombosis/Pulmonary Embolism Present on Admission: No Contraindication to Pharmacological VTE Prophylaxis: Already on Theraputic Agent , No Prophylaxis Needed
[2016-11-26] MEDS: CIPROFLOXACIN INJ 400 MG in PREMIX 1 EACH IV SCH ×2 (12:41→23:10)
[2016-11-26] MEDS: LACTATED RINGERS 1,000 ML IV SCH (12:41)
[2016-11-26] MEDS: ENOXAPARIN 40 MG/0.4 ML SYRINGE SUBCUT SCH ×2 (12:41→12:46)
--- NOTE | 2016-11-26 13:35 | XRay Report ---
EXAM: XR abdomen 2V CLINICAL INDICATION: Abdominal Pain COMPARISON: None Findings: X-rays right moderate left pleural effusion. No gastric distention. [No abnormally dilated small bowel loops are identified to suggest obstruction. No free intraperitoneal air.] Few scattered air-filled loops of nondistended bowel are noted. Radiopaque densities superimposed over the right upper quadrant. Visceral shadows are normal. Postoperative changes within the right hemipelvis. IMPRESSION: 1. Nonobstructed bowel gas pattern 2. Suspect cholelithiasis 3. Bilateral pleural effusions, left greater than right PROCEDURE INTERPRETED AT [facility] DEPARTMENT OF RADIOLOGY Final Report Signed by: Domingo Roberson
[2016-11-26] MEDS: oxyCODONE/ACETAMINOPHEN 5-325 MG TABLET PO PRN (20:41)
[2016-11-26] MEDS: INSULIN GLARGINE 100 UNIT/ML SUBCUT SCH (20:41)
[2016-11-27] MEDS: INSULIN LISPRO 100 UNIT/ML SUBCUT SCH ×4 (00:55→18:22)
[2016-11-27] MEDS: LACTATED RINGERS 1,000 ML IV SCH ×6 (03:22→19:56)
[2016-11-27] MEDS: metroNIDAZOLE INJ 500 MG in PREMIX 1 EACH IV SCH ×3 (05:28→22:01)
[2016-11-27] MEDS ORDERED: BUPIVACAINE MPF 0.25% /EPI 30 ML VIAL ONE (07:27)
[2016-11-27] MEDS ORDERED: LIDOCAINE 1%/EPI INJ 20 ML VIAL ONE (07:27)
--- NOTE | 2016-11-27 07:28 | Event Note ---
Patient seen and examined this morning. He is feeling much better today. His indigestion and upper abdominal complaints that he had yesterday resolved. He would like to proceed with cholecystectomy. On exam his abdomen is soft nontender non-distended. Cardiology is felt he is low risk from a cardiac standpoint for surgery. He denies shortness of breath. Lab work this morning is pending. I discussed the procedure for cholecystectomy and the indications. He understands the main goal is to prevent choledocholithiasis in the future as well as the potential for acute cholangitis. We discussed how the procedures performed and the anticipated recovery. The risk of the procedure including bleeding, infection, damage to surrounding structures including the biliary tree, need for further surgery were all discussed in detail and he would like to proceed.
[2016-11-27] MEDS ORDERED: ALBUTEROL/IPRATROPIUM 3 ML NEB RESP TX ONE (08:00)
[2016-11-27 08:11] LABS: Albumin 2.8 G/DL (3.4-5.0); Bilirubin,Direct 0.86 MG/DL (0.0-0.20); Bilirubin,Indirect 1.4 MG/DL (0.0-1.0); Bilirubin,Total 2.3 MG/DL (0.2-1.0); Total Protein 5.6 G/DL (6.4-8.3)
[2016-11-27 08:25] LABS: Basophils % 0.3 % (0.0-0.8); Eosinophils # 0.1 10*3/uL (0.0-0.87); Eosinophils % 1.2 % (0.00-10.9); Hematocrit 33.4 VOL% (42.0-52.0); Hemoglobin 11.5 GM/DL (14.0-18.0); Immature Granulocytes % 0.9 %; Immature Granulocytes Absolute 0.08 #; Lymphocytes # 1.1 10*3/uL (1.4-4.0); Mean Corpuscular HGB Conc 34.4 GM/DL (32-36); Mean Corpuscular Hemoglobin 29 PG (27-34); Monocytes # 0.8 10*3/uL (0.11-0.8); Monocytes % 9.3 % (1.7-12.7); Neutrophils # 6.8 10*3/uL (1.4-7.4); Neutrophils % 76.3 % (38.7-73.9); Platelet Count 284 T/CUMM (130-400); Red Blood Count 3.93 MC/CUMM (3.8-5.5); Red Cell Distribution Width 14.5 % (9.3-17.3); White Blood Count 8.9 T/CUMM (4-12)
[2016-11-27 08:32] LABS: Calcium 7.9 MG/DL (8.5-10.1); Osmolality,Calculated 265.5 MOS/KG (273-304)
[2016-11-27] MEDS: SERTRALINE 100 MG TABLET PO SCH (08:58)
[2016-11-27] MEDS: clonazePAM 0.5 MG TABLET PO SCH ×3 (08:58→20:50)
[2016-11-27] MEDS: PANTOPRAZOLE 40 MG TABLET PO SCH (08:58)
[2016-11-27 09:08] LABS: Troponin I Only 0.026 NG/ML (0.00-0.045)
[2016-11-27] MEDS ORDERED: fentaNYL 100 MCG/2 ML VIAL ONE (10:40)
[2016-11-27] MEDS ORDERED: MIDAZOLAM 2 MG/2 ML VIAL ONE (10:40)
[2016-11-27] MEDS ORDERED: PROPOFOL 200 MG/20 ML VIAL IV ONE (10:40)
[2016-11-27] MEDS ORDERED: DESFLURANE 1 UNIT/15 MINUTE INH ONE (10:40)
[2016-11-27] MEDS ORDERED: ROCURONIUM 100 MG/10 ML VIAL IV ONE (10:41)
[2016-11-27] MEDS ORDERED: GLYCOPYRROLATE 0.4 MG/2 ML VIAL ONE (10:41)
[2016-11-27] MEDS ORDERED: LACTATED RINGERS 1,000 ML IV ONE (10:41)
[2016-11-27] MEDS ORDERED: ALBUTEROL 2.5 MG/3 ML NEB RESP TX ONE (10:41)
[2016-11-27] MEDS ORDERED: SUCCINYLCHOLINE 200 MG/10 ML VIAL ONE (10:41)
[2016-11-27] MEDS ORDERED: ONDANSETRON 4 MG/2 ML VIAL ONE (10:41)
[2016-11-27] MEDS ORDERED: NEOSTIGMINE 10 MG/10 ML VIAL ONE (10:41)
[2016-11-27] MEDS ORDERED: FUROSEMIDE 20 MG/2 ML VIAL ONE (10:41)
[2016-11-27] MEDS ORDERED: ACETAMINOPHEN 1,000 MG/100 ML VIAL IV ONE (10:41)
--- NOTE | 2016-11-27 11:03 | Anesthesia Post-Op ---
Anesthesia Post OP - Post Ansesthetic Evaluation Patient seen in post op: Yes Resp: within normal limits CV: within normal limits Mental: within normal limits Temp: within normal limits [id number]: within normal limits Nausea and Vomiting: within normal limits Pain: within normal limits
[2016-11-27 11:07] LABS: Apearance,Urine CLEAR (Clear); Bilirubin,Urine Negative (Negative); Blood, Urine Negative (Negative); Glucose,Urine (UA) 50 mg/dL (Negative); Ketones,Urine Negative (Negative); Mucus,Urine Occasional /LPF (Occasional); Nitrite,Urine Negative (Negative); Protein,Urine Negative; RBC,Urine 1 /HPF (0-4); Urine Color Amber (Yellow); Urine Specific Gravity 1.013 (1.001-1.035); Urine Urobilinogen < 2.0 EU/DL (0.2-1.0); WBC,Urine 1 /HPF (0-6)
[2016-11-27] MEDS ORDERED: ONDANSETRON 4 MG/2 ML VIAL IV PRN (11:15)
[2016-11-27] MEDS ORDERED: HYDROmorphone 2 MG/1 ML VIAL IV PRN (11:15)
--- NOTE | 2016-11-27 11:40 | Operative Note ---
Date of procedure: 11/27/16 Pre-op diagnosis: Choledocholithiasis, cholangitis, status post ERCP Post-op diagnosis: same (Also with evidence of acute cholecystitis) Procedure: Procedure performed: Laparoscopic cholecystectomy with intraoperative cholangiogram Procedure in detail: After informed consent was obtained, patient was taken operating suite lies upon the operating table. After general anesthesia was induced abdomen was prepped and draped in usual sterile fashion. After procedural pause local anesthetic infiltrated in the skin and subcutaneous tissue above the umbilicus. Incision was made and dissection carried down through skin and soft tissue. Fascia was grasped with Yusuf's and elevated fascial incision was made. Abdominal cavity was entered bluntly. Finger sweep revealed no adhesions. Lopes trocar was placed under direct visualization. Pneumoperitoneum achieved. Bowel mesentery inspected found to be free of any violation. Next the patient was placed in reverse Trendelenburg position rotated to the left. 2 5 mm trochars were placed in the right upper quadrant and an 11 mm subxiphoid trocar was placed all under visualization. The liver appeared mildly nodular throughout. The gallbladder was identified it was distended and thickened with edema as well. Is all consistent with acute cholecystitis. The gallbladder was grasped and retracted superiorly. Infundibulum the gallbladder retracted toward the right hip. There is actually very little inflammation in the triangle of Yousif region. Dissection was carried out from lateral to medial approach and the triangle of Yousif and the cystic duct and cystic artery were identified and dissected free from surrounding tissue and isolated. These were the only 2 structures entering the gallbladder. The critical view was obtained. A clip was placed the junction of the cystic duct and neck of the gallbladder and partial transection made on the nondilated cystic duct. Cholangiocatheter was inserted and secured in place but I had difficulty flushing it. The cholangiocatheter was repositioned and secured in place. Intraoperative cholangiogram performed. Common bile duct and hepatic ducts filled with no filling defects identified. It is difficult to visualize the ampullary region for a small defect but I did not see any obvious filling defect present. There is limited due to his body habitus and positioning on the table. Multiple angles were obtained for the best views. Contrast was seen entering the small bowel. The cholangiocatheter was removed and 2 clips placed on the cystic duct just distal to the partial transection and the transection completed. Cystic artery was triple clipped and transected how long the gallbladder wall the gallbladder removed from the gallbladder fossa using hook cautery. There is some mild oozing on the gallbladder fossa controlled with electrocautery and Surgicel. The Surgicel was eventually removed. The gallbladder removed through the Lopes trocar site in an Endo Catch sac. Pneumoperitoneum reachieved in the right upper quadrant was irrigated and suctioned. There was good hemostasis. The clips inspected found to be intact no leakage of bilious or sanguinous fluid. Since the patient is on Pradaxa and will be resuming it soon elected to place a 10 [place] Ferm[place] drain in the gallbladder fossa region. It was brought up through the lateral trocar site and secured in place with 2-0 nylon suture. The irrigant all remained clear and was all suctioned. The remaining trochars removed his abdomen desufflated. Fascia at the Lopes trocar site closed using 0 Vicryl [id number] interrupted suture. Wounds were thoroughly irrigated and suctioned skin closed with josie. Sterile dressings applied. Patient was extubated and taken recovery room in stable condition. Anesthesia: MADELAINEA Surgeon / Physician: Tim Amado Estimated blood loss: other (Less than 25 cc) Specimens: other (Gallbladder) Condition: stable Disposition: PACU Results - Labs CBC & BMP: 11/27/16 08:20 11/27/16 06:28 Discharge Plan - Discharge Medications No Action Insulin Glargine,Hum.rec.anlog [Lantus SoloStar] 50 unit SUBCUT QPM Furosemide Tab [Lasix Tab] 40 mg PO DAILY Sertraline [Zoloft] 100 mg PO DAILY Carvedilol 3.125 mg PO BID Atorvastatin [Lipitor] 40 mg PO MOWEFR Dabigatran [Pradaxa] 150 mg PO BID clonazePAM [Clonazepam] 0.5 mg PO TID Oxycodone HCl/Acetaminophen [Oxycodon-Acetaminophen 7.5-325] 1 - 2 each PO Q6HR PRN #30 tablet PRN Reason: Pain Insulin Glargine [Lantus] 68 unit SUBCUT AC SUPPER - Follow Up or Referral - Forms/Instructions
[2016-11-27] MEDS: ENOXAPARIN 40 MG/0.4 ML SYRINGE SUBCUT SCH (11:49)
[2016-11-27] MEDS: CIPROFLOXACIN INJ 400 MG in PREMIX 1 EACH IV SCH ×2 (12:15→23:07)
--- NOTE | 2016-11-27 13:32 | Hospitalist Progress Note ---
Assessment and Plan (1) Hyponatremia Status: Acute Assessment and plan: 1)hyponatremia- chronic, 132 2)chronic afib- anticoagulation on hold. takes pradaxa as outpatient. Will restart tomorrow if ok with surgery. 3)cholecystitis with biliary sludge on ERCP and pneumobilia- s/p lap cholecystectomy 4)morbid obesity 5)HTN- remains controlled but home meds not restarted yet. 6)DM- glucose 134-246. Continue current reduced dose of lantus with SSI since he is not eating regularly at this time 7)anxiety- on Zoloft and clonazepam as he takes them at home. 8)dvt ppx- on lovenox. Current Visit: Yes (2) suspect YARA Status: Acute Current Visit: Yes (3) Pneumobilia Status: Acute Current Visit: Yes (4) Hypertension Status: Acute Current Visit: Yes (5) Diabetes Status: Acute Current Visit: Yes (6) Chronic atrial fibrillation Status: Acute Current Visit: Yes (7) Chronic anticoagulation Status: Acute Current Visit: Yes (8) Morbid obesity Status: Acute Current Visit: Yes Hospitalist: Subjective Interval history: Mr Casey is sleepy post anesthesia in his room but wakes to answer questions briefly. He had lap cholecystectomy today. Exam - Constitutional Vitals: Period Temp Pulse Resp BP Sys/Pacheco Pulse Ox Last 24 Hr 97.0 F-98.5 F 80-118 18-24 108-136/64-92 90-97 General appearance: no acute distress, morbidly obese - Eye Eye exam: Present: EOMI. Absent: scleral icterus - Respiratory Respiratory exam: Present: clear to auscultation bilaterally - Cardiovascular Cardiovascular exam: Present: regular rate and rhythm - GI/Abdominal GI/Abdominal exam: Present: normal bowel sounds, soft. Absent: tenderness - Extremities Exam Extremities exam: Absent: edema Results - Labs CBC & BMP: 11/27/16 08:20 11/27/16 06:28 Lab Results: I have reviewed the past 24 hour labs Quality Measures - VTE Deep Vein Thrombosis/Pulmonary Embolism Present on Admission: No Contraindication to Pharmacological VTE Prophylaxis: Already on Theraputic Agent , No Prophylaxis Needed
--- NOTE | 2016-11-27 14:06 | Fluoroscopy Report ---
Exam: [place] cholangiogram in surgery Date: 11/27/2016 Indication: Pain Comparison: ERCP 11/25/2016 Findings: 123 images were obtained. 73.1 seconds fluoroscopy time with approximately 10 cc of contrast administered by Dr. Dominguez. The cystic duct was cannulated. The left and right biliary radicals are poorly demonstrated the common bile duct is demonstrated emptying into the ampulla. Impression: 1. Limited intrahepatic cholangiogram. No abnormality in the common bile duct and the ampulla present. PROCEDURE INTERPRETED AT [facility] DEPARTMENT OF RADIOLOGY Final Report Signed by: Dr. Jh Benites
[2016-11-27] MEDS: INSULIN GLARGINE 100 UNIT/ML SUBCUT SCH (20:50)
[2016-11-27] MEDS: oxyCODONE/ACETAMINOPHEN 5-325 MG TABLET PO PRN (20:54)
[2016-11-28] MEDS: INSULIN LISPRO 100 UNIT/ML SUBCUT SCH ×4 (00:40→19:30)
[2016-11-28 05:31] LABS: Basophils # 0.1 10*3/uL (0.0-0.2); Basophils % 0.5 % (0.0-0.8); Eosinophils % 0.3 % (0.00-10.9); Hematocrit 34.6 VOL% (42.0-52.0); Hemoglobin 11.6 GM/DL (14.0-18.0); Immature Granulocytes % 1.3 %; Immature Granulocytes Absolute 0.16 #; Lymphocytes % 7.9 % (21.2-54.2); Mean Corpuscular HGB Conc 33.5 GM/DL (32-36); Mean Corpuscular Hemoglobin 29 PG (27-34); Mean Platelet Volume 9.4 FL (9.6-12.0); Monocytes # 1.2 10*3/uL (0.11-0.8); Monocytes % 9.4 % (1.7-12.7); Neutrophils # 10.2 10*3/uL (1.4-7.4); Neutrophils % 80.6 % (38.7-73.9); Platelet Count 384 T/CUMM (130-400); Red Blood Count 4.07 MC/CUMM (3.8-5.5); Red Cell Distribution Width 14.5 % (9.3-17.3); White Blood Count 12.6 T/CUMM (4-12)
[2016-11-28] MEDS: metroNIDAZOLE INJ 500 MG in PREMIX 1 EACH IV SCH ×3 (05:46→21:29)
[2016-11-28 06:01] LABS: Albumin 2.6 G/DL (3.4-5.0); Bilirubin,Total 1.2 MG/DL (0.2-1.0); Calcium 7.7 MG/DL (8.5-10.1); Osmolality,Calculated 261.7 MOS/KG (273-304); Potassium 4.1 MMOL/L (3.5-5.1); Total Protein 5.3 G/DL (6.4-8.3)
[2016-11-28] MEDS ORDERED: FUROSEMIDE 40 MG/4 ML VIAL IV ONE ×2 (08:35→15:00)
[2016-11-28] MEDS ORDERED: ALBUTEROL/IPRATROPIUM 3 ML NEB RESP TX STA (08:38)
--- NOTE | 2016-11-28 10:12 | Event Note ---
Addendum entered and electronically signed by Trice Aragon PA 11/28/16 10:13: Restart Pradaxa. Original Note: Patient is postop day #1 status post laparoscopic cholecystectomy with intraoperative cholangiogram. He reports his abdominal pain is well controlled he has had no nausea or vomiting. He did have wheezing and orthopnea overnight -this is being addressed by the medical team, and we appreciate the assistance. No further diarrhea. No nausea or vomiting. Tolerated breakfast without difficulty. Vital signs: Slightly tachycardic; afebrile Heart tachycardic; regular rhythm. Lungs bibasilar rales; no wheezes appreciated. Abdomen: Surgical incisions with minimal dry drainage. Abdomen is obese, soft and appropriately tender postop. Bowel sounds are present. AVA drain with serosanguineous output. There is 75 cc recorded after surgery; 70 cc since midnight. Extremities: Calves are soft and nontender without pedal edema Labs: CBC with mild leukocytosis WC 12; H&H is stable CMP bilirubin decreased 1.2; hyponatremia persistent with sodium 131 Assessment and plan Patient is postop day #1 status post laparoscopic cholecystectomy. From a surgical standpoint he is stable with stable H&H. Mild leukocytosis is noted we will follow with repeat labs in the morning. Continue Cipro and Flagyl as cholangitis was suspected; diarrhea has resolved. He will require 1 week of oral antibiotics upon discharge. Pain management as warranted and encourage incentive spirometry. Patient appears to be volume overloaded postoperatively which is being managed by Dr. Robledo.
[2016-11-28] MEDS: clonazePAM 0.5 MG TABLET PO SCH ×3 (10:42→21:28)
[2016-11-28] MEDS: PANTOPRAZOLE 40 MG TABLET PO SCH (10:42)
[2016-11-28] MEDS: SERTRALINE 100 MG TABLET PO SCH (10:43)
[2016-11-28] MEDS: DABIGATRAN 150 MG CAPSULE PO SCH ×2 (10:47→21:28)
[2016-11-28] MEDS: CIPROFLOXACIN INJ 400 MG in PREMIX 1 EACH IV SCH ×2 (11:20→22:37)
--- NOTE | 2016-11-28 11:20 | Pathology Report from [facility] ---
[facility] [place] ACCESSION # : [id number] PATIENT NAME : Mohit Casey ORDERING DR : Tim Amado MD CLINICAL HX: Cholecystitis POST-OP DX: Same SPECIMEN INFO: Gallbladder GROSS DESCRIPTION: The specimen is received in formalin labeled with the patients name and consists of a focally opened gallbladder measuring 12.0 x 5.2 cm. The serosa is pink-baez and fatty. The wall averages 0.4 cm in thickness. The mucosa is granular, pink-baez and focally erythematous and ulcerated. The lumen contains yellow-brown, somewhat gelatinous material admixed with multiple smooth, black stones collectively measuring approximately 3.0 x 1.5 cm. A few stones are located within the area of the cystic duct. Additionally there is a 1.3 x 1.2 cm smooth brown-black stone present. Provider Contracting Consultant tissue submitted in one cassette. DIAGNOSIS FOR MOHIT CASEY: GALLBLADDER, CHOLECYSTECTOMY: Acute and chronic cholecystitis. Cholelithiasis. COLLECTED DATE: 11/27/2016 [facility] REPORT DATE: 11/28/2016 ELECTRONICALLY SIGNED BY: Kristy Townsend M.D. 11/28/2016 - 10:54:11 OBDULIA
--- NOTE | 2016-11-28 12:21 | Discharge Summary ---
Hospital Course - Hospital Course Hospital Course: Patient is a 76-year-old male who was admitted with pneumobilia and suspected cholangitis for which she was treated with IV antibiotics. Gastroenterology consultation was obtained and input was appreciated. He ultimately underwent ERCP with common bile duct sphincterotomy and common bile duct sludge removal as well as laparoscopic cholecystectomy. His Pradaxa was held perioperatively and then restarted postoperative day #1. Cardiology consultation was also obtainedand had chest tightness as well as history of A. fib and hypertension for perioperative risk assessment for evaluation of the reported chest tightness upon arrival without findings of; the patient was found to be a an acceptable risk for surgical perioperative complications. There were no cardiac findings to note; sleep services consultation was also obtained from Dr. Magana for suspected sleep apnea. Hospitalist consultation was obtained this patient medical comorbidities to assist in medical management. The patient did well postoperatively. His drain has been removed. He was treated for some fluid overload with Lasix and Aldactone and has diuresed well. He is in no acute distress this morning and is ready for discharge home. He is given a new prescription for Aldactone twice daily 25 mg for 1 week to assist in his progressive diuresis at home. The patient's was at the bedside at the time of my evaluation. The expressed understanding of the discharge instructions and follow-up plan. The patient is encouraged to follow-up with his primary care physician in 1 week. His home medications were reviewed and reconciled. He remains a full code with his being his power of immigration attorney. Diagnosis - Discharge Diagnosis (1) Pneumobilia Status: Acute (2) Elevated bilirubin Status: Acute (3) Fatty liver Status: Acute (4) Cholangitis Status: Acute (5) Cholelithiasis Status: Acute (6) Acute cholecystitis Status: Resolved (7) Choledocholithiasis Status: Resolved (8) Chronic atrial fibrillation Status: Chronic (9) Diabetes Status: Chronic (10) Hypertension Status: Chronic (11) Hyponatremia Status: Acute (12) Morbid obesity Status: Chronic (13) suspect YARA Status: Acute Specialty Discharge - Follow Up or Referrals Follow up with: Tim Amado MD [Physician] - 12/15/16 9:00 am Rita Magana MD [Physician] - (please call sleep lab center at [phone] when you would like to see Dr. Magana for a sleep eval.) Walter Moran MD [Physician] - (office will call you at home about your appointment with Dr. Moran.) Discharge Plan - Discharge Data Disposition: Disch To Home/Self Care Condition at Discharge: Stable Discharge Diet: diabetic diet Activity: no lifting (> 10 lb) Hygiene: may shower Driving: not until seen by doctor Contact your physician if you experience:: fever over 101, Redness or swelling, Nausea/Vomiting, Shortness of breath, Bleeding, pain uncontrolled by pain medications Wound / Dressing Care Instructions: Keep surgical incisions clean, dry and covered. Do not soak or submerge wounds. Pat wounds dry. ENT AVA drain twice daily and keep a record of amount of fluid discarded. - Discharge Medications New Ciprofloxacin Tab [Cipro Tab] 500 mg PO BID #14 tablet metroNIDAZOLE TAB [Flagyl Cap/Tab] 500 mg PO TID #42 tablet oxyCODONE/ACETAMINOPHEN 5-325 [Percocet 5-325] 1 tablet PO Q4H PRN #30 tablet PRN Reason: Pain Moderate To Severe (4-10) Pantoprazole Tab [Protonix Tab] 40 mg PO DAILY #30 tablet Spironolactone [Aldactone] 25 mg PO BID #14 tablet Continue Insulin Glargine,Hum.rec.anlog [Lantus SoloStar] 50 unit SUBCUT QPM Furosemide Tab [Lasix Tab] 40 mg PO DAILY Sertraline [Zoloft] 100 mg PO DAILY Carvedilol 3.125 mg PO BID Atorvastatin [Lipitor] 40 mg PO MOWEFR Dabigatran [Pradaxa] 150 mg PO BID clonazePAM [Clonazepam] 0.5 mg PO TID Discontinued Oxycodone HCl/Acetaminophen [Oxycodon-Acetaminophen 7.5-325] 1 - 2 each PO Q6HR PRN #30 tablet PRN Reason: Pain Insulin Glargine [Lantus] 68 unit SUBCUT AC SUPPER - Follow Up or Referral Follow Up: Tim Amado MD [Physician] - 12/15/16 9:00 am Rita Magana MD [Physician] - (please call sleep lab center at [phone] when you would like to see Dr. Magana for a sleep eval.) Walter Moran MD [Physician] - (office will call you at home about your appointment with Dr. Moran.) - Forms/Instructions Instructions: Ciprofloxacin (By mouth), Metronidazole (By mouth), Sleep Apnea Syndrome (DC), Laparoscopic Cholecystectomy (DC), Non-Alcoholic Fatty Liver Disease (DC) Exam - Constitutional Vitals: Period Temp Pulse Resp BP Sys/Pacheco Pulse Ox Last 24 Hr 96.8 F-99.3 F 65-112 20-23 108-149/57-83 90-98 Discharge Results Procedures and tests throughout hospitalization: Pending Orders 11/29/16 04:00 Comp Blood Count Auto Diff IN AM Blood cultures: No growth at 5 days C. difficile negative ERCP with CBD sphincterotomy and sludge removal with Dr. Juarez on 11/25/2016 Laparoscopic cholecystectomy with intraoperative cholangiogram with Dr. Dominguez on 11/27/2016; Pathology: Acute and chronic cholecystitis with cholelithiasis Labs on day of discharge: Labs from last 24 hours 11/28/16 11/28/16 11/28/16 11:48 05:43 04:52 WBC RBC Hgb Hct MCV MCH MCHC RDW Plt Count MPV Neut % (Auto) Lymph % (Auto) [place] % (Auto) Eos % (Auto) Baso % (Auto) Neut # (Auto) Lymph # (Auto) [place] # (Auto) Eos # (Auto) Baso # (Auto) Immature Gran % Nucleated RBC % Immature Gran # Nucleated RBCs # Immature Plt Fraction Sodium 131 L Potassium 4.1 Chloride 97 L Carbon Dioxide 27 Anion Gap 11.1 BUN 8 Creatinine 1.00 GFR Calculation 103 BUN/Creatinine Ratio 8.00 Glucose 139 H POC Glucose 193 H 148 H Calculated Osmolality 261.7 L Calcium 7.7 L Total Bilirubin 1.20 H AST 38 H ALT 42 Alkaline Phosphatase 135 H Total Protein 5.3 L Albumin 2.6 L Globulin 2.7 Albumin/Globulin Ratio 0.9 L 11/28/16 11/28/16 11/27/16 04:52 00:24 17:28 WBC 12.6 H D RBC 4.07 Hgb 11.6 L Hct 34.6 L MCV 85.0 L MCH 29 MCHC 33.5 RDW 14.5 Plt Count 384 D MPV 9.4 L Neut % (Auto) 80.6 H Lymph % (Auto) 7.9 L [place] % (Auto) 9.4 Eos % (Auto) 0.3 Baso % (Auto) 0.5 Neut # (Auto) 10.2 H Lymph # (Auto) 1.0 L [place] # (Auto) 1.2 H Eos # (Auto) 0.0 Baso # (Auto) 0.1 Immature Gran % 1.3 Nucleated RBC % 0.0 Immature Gran # 0.16 Nucleated RBCs # 0.00 Immature Plt Fraction 0.0 Sodium Potassium Chloride Carbon Dioxide Anion Gap BUN Creatinine GFR Calculation BUN/Creatinine Ratio Glucose POC Glucose 291 H 167 H Calculated Osmolality Calcium Total Bilirubin AST ALT Alkaline Phosphatase Total Protein Albumin Globulin Albumin/Globulin Ratio - Imaging and Cardiology Procedure: CT Abdomen and Pelvis: image reviewed by me, report reviewed by me, CT - chest: image reviewed by me, report reviewed by me DS: Provider Date of admission: 11/22/16 23:41 Primary care physician: . No PCP Attending physician on admission: Tim Amado MD Consults: 11/22/16 23:41 Consult to Physician [CONS] Routine Comment: Consulting Provider: Scott Clements Person Notified: Loli at the answering service Date Notified: 11/23/16 Time Notified: 10:33 Consult to Physician [CONS] Routine Comment: IR Cholecystostomy Consulting Provider: 11/22/16 23:44 Consult to Physician [CONS] Routine Comment: Consulting Provider: Elana Mahmood Date Notified: 11/23/16 Time Notified: 09:16 Consult Notification Comment: Dr. Leal saw on rounds. 11/23/16 00:53 Consult to Physician [CONS] Routine Comment: evalute for yara Consulting Provider: Rita Magnaa Consulting Provider Notified: Yes When should Consulting Provider be notified: In am Person Notified: elana ortega ext. [phone] Date Notified: 11/25/16 Time Notified: 09:26 11/23/16 08:52 Consult to Physician [CONS] Routine Comment: bad gallbladder, air Consulting Provider: Dilia Obrien Person Notified: Dr. Obrien Date Notified: 11/23/16 Time Notified: 10:28 Discharging clinician: Trice Aragon PA-C
[2016-11-28] MEDS ORDERED: ATORVASTATIN 40 MG TABLET PO SCH (12:30)
--- NOTE | 2016-11-28 12:35 | Hospitalist Progress Note ---
Assessment and Plan (1) Hyponatremia Status: Acute Assessment and plan: 1)hyponatremia- chronic 2)chronic afib- anticoagulation on hold. takes pradaxa as outpatient. restart Pradaxa today. 3)cholecystitis with biliary sludge on ERCP and pneumobilia- s/p lap cholecystectomy. check WBC again in am. 4)morbid obesity 5)HTN- remains controlled. restart home meds. 6)DM- glucose 134-246. Continue current reduced dose of lantus with SSI since he is not eating regularly at this time 7)anxiety- on Zoloft and clonazepam as he takes them at home. 8)dvt ppx- on lovenox. 9)volume overload post surgery- diurese with IV Lasix and assess. restart usual home lasix also. IVF stopped. 10)try duoneb also- likely with restrictive lung disease due to his size, no history of tobacco. Current Visit: Yes (2) suspect YARA Status: Acute Current Visit: Yes (3) Pneumobilia Status: Acute Current Visit: Yes (4) Hypertension Status: Acute Current Visit: Yes (5) Diabetes Status: Acute Current Visit: Yes (6) Chronic atrial fibrillation Status: Acute Current Visit: Yes (7) Chronic anticoagulation Status: Acute Current Visit: Yes (8) Morbid obesity Status: Acute Current Visit: Yes Hospitalist: Subjective Interval history: Mr Casey is up on the side of the bed this morning, moving around a little better than day before surgery. His pain is controlled. He says he has used an inhaler in the past and might need one now. He has some voluem overload post op and his lungs have basilar crackles. Sats on RA 91%. Exam - Constitutional Vitals: Period Temp Pulse Resp BP Sys/Pacheco Pulse Ox Last 24 Hr 96.8 F-99.3 F 65-112 20-23 108-149/57-83 90-98 General appearance: no acute distress, morbidly obese - Eye Eye exam: Present: EOMI. Absent: scleral icterus - Respiratory Respiratory exam: Present: rales (at bases) - Cardiovascular Cardiovascular exam: Present: regular rate and rhythm - GI/Abdominal GI/Abdominal exam: Present: normal bowel sounds, soft. Absent: tenderness - Extremities Exam Extremities exam: Absent: edema - Neurological Exam Neurological exam: Present: alert, oriented X3 - Skin Skin exam: Present: warm, dry Results - Labs CBC & BMP: 11/28/16 04:52 11/28/16 04:52 Lab Results: I have reviewed the past 24 hour labs Quality Measures - VTE Deep Vein Thrombosis/Pulmonary Embolism Present on Admission: No Contraindication to Pharmacological VTE Prophylaxis: Already on Theraputic Agent , No Prophylaxis Needed Specialty Discharge - Follow Up or Referrals Follow up with: Tim Amado MD [Physician] - 12/15/16 9:00 am Rita Magana MD [Physician] - (please call sleep lab center at [phone] when you would like to see Dr. Magana for a sleep eval.) Walter Moran MD [Physician] - (office will call you at home about your appointment with Dr. Moran.)
[2016-11-28] MEDS: ALBUTEROL/IPRATROPIUM 3 ML NEB RESP TX PRN (15:51)
[2016-11-28] MEDS: INSULIN GLARGINE 100 UNIT/ML SUBCUT SCH (21:28)
[2016-11-28] MEDS: CARVEDILOL 3.125 MG TABLET PO SCH (21:28)
[2016-11-29] MEDS: INSULIN LISPRO 100 UNIT/ML SUBCUT SCH ×4 (00:44→18:26)
[2016-11-29] MEDS: LOPERAMIDE 2 MG CAPSULE PO PRN ×2 (00:44→11:58)
[2016-11-29] MEDS: ALBUTEROL/IPRATROPIUM 3 ML NEB RESP TX PRN (02:15)
[2016-11-29] MEDS: LACTATED RINGERS 1,000 ML IV SCH (02:46)
[2016-11-29] MEDS ORDERED: FUROSEMIDE 40 MG/4 ML VIAL IV ONE (03:06)
[2016-11-29 03:46] LABS: Basophils # 0.1 10*3/uL (0.0-0.2); Basophils % 0.4 % (0.0-0.8); Eosinophils # 0.2 10*3/uL (0.0-0.87); Eosinophils % 1.3 % (0.00-10.9); Hematocrit 33.1 VOL% (42.0-52.0); Hemoglobin 11.5 GM/DL (14.0-18.0); Immature Granulocytes % 1.5 %; Immature Granulocytes Absolute 0.19 #; Lymphocytes # 1.2 10*3/uL (1.4-4.0); Lymphocytes % 9.3 % (21.2-54.2); Mean Corpuscular HGB Conc 34.7 GM/DL (32-36); Mean Corpuscular Hemoglobin 29 PG (27-34); Mean Corpuscular Volume 83.4 FL (87-102); Mean Platelet Volume 9.2 FL (9.6-12.0); Monocytes # 1.3 10*3/uL (0.11-0.8); Monocytes % 10.4 % (1.7-12.7); Neutrophils # 9.8 10*3/uL (1.4-7.4); Neutrophils % 77.1 % (38.7-73.9); Platelet Count 404 T/CUMM (130-400); Red Blood Count 3.97 MC/CUMM (3.8-5.5); Red Cell Distribution Width 14.6 % (9.3-17.3); White Blood Count 12.8 T/CUMM (4-12)
[2016-11-29] MEDS: metroNIDAZOLE INJ 500 MG in PREMIX 1 EACH IV SCH (05:43)
[2016-11-29] MEDS ORDERED: FUROSEMIDE 40 MG TABLET PO SCH (09:00)
--- NOTE | 2016-11-29 09:17 | Event Note ---
He denies any abdominal pain. There is no blood or bile in his AVA drain. This is just serous. His abdomen is nontender. He is afebrile but a little bit tachycardic. He has some complaints of shortness of breath. I do not see any evidence of intra-abdominal complication or problem. I think we can get his drain out. I will leave the decision to discharge up to internal medicine.
[2016-11-29] MEDS: CARVEDILOL 3.125 MG TABLET PO SCH ×2 (09:18→21:53)
[2016-11-29] MEDS: clonazePAM 0.5 MG TABLET PO SCH ×3 (09:18→21:53)
[2016-11-29] MEDS: DABIGATRAN 150 MG CAPSULE PO SCH ×2 (09:19→21:53)
[2016-11-29] MEDS: SERTRALINE 100 MG TABLET PO SCH (09:19)
[2016-11-29] MEDS: PANTOPRAZOLE 40 MG TABLET PO SCH (09:19)
--- NOTE | 2016-11-29 10:52 | Hospitalist Progress Note ---
Assessment and Plan (1) Fluid overload Status: Acute Assessment and plan: The patient has fluid overload and is on Lasix at home. He has bilateral pedal edema and enlarged abdominal girth. His echocardiogram shows a preserved ejection fraction of 50-55% with evidence of suspected right heart failure and diastolic dysfunction. This is a acute on chronic process that is acutely exacerbated after IV fluid hydration during the course of the hospitalization. Diuresis is in process with Aldactone and Lasix. Current Visit: Yes (2) Hypertension Status: Chronic Current Visit: Yes Qualifiers: Hypertension type: essential hypertension Qualified Code(s): I10 - Essential (primary) hypertension (3) Diabetes Status: Chronic Current Visit: Yes Qualifiers: Diabetes mellitus type: type 2 Diabetes mellitus complication status: with hyperglycemia Diabetes mellitus penitentiary insulin use: with termite control representative use Qualified Code(s): E11.65 - Type 2 diabetes mellitus with hyperglycemia; Z79.4 - prison (current) use of insulin (4) Chronic atrial fibrillation Status: Chronic Current Visit: Yes (5) Chronic anticoagulation Status: Chronic Assessment and plan: On Pradaxa for atrial fibrillation Current Visit: Yes (6) Morbid obesity Status: Chronic Current Visit: Yes (7) Acute cholecystitis Status: Resolved Assessment and plan: Status post laparoscopic cholecystectomy with drain placement. Current Visit: Yes (8) Choledocholithiasis Status: Resolved Assessment and plan: Status post ERCP and lap cristina Current Visit: Yes Hospitalist: Subjective Interval history: Patient seen and examined. No acute events overnight. Case discussed with nursing staff. Labs reviewed. at the bedside. Patient with continued shortness of breath and conversational dyspnea. Bilateral lower extremity edema noted. Will continue to diurese. Exam - Constitutional Vitals: Period Temp Pulse Resp BP Sys/Pacheco Pulse Ox Last 24 Hr 97.0 F-98.5 F 90-143 18-22 115-139/55-74 90-100 Exam: Constitutional System: Mild distress. No tremulousness. Conversational dyspnea noted. Patient is morbidly obese. Head: Normocephalic, atraumatic. Ears, Nose and Throat System: No pain or tenderness. No epistaxis or discharge Eyes System: Pupils equal, round, and reactive. Extraocular muscles intact. Neck: Supple, without adenopathy, No jugular venous distention. No thyromegaly, neck mass, or prior surgery apparent. Respiratory System: Chest clear to auscultation. Cardiovascular System: Heart with regular rate and rhythm. No murmur. GI System: Abdomen soft, nontender. Normo active bowel sounds present. Postoperative changes noted. AVA drain in place. Serous drainage noted. Musculoskeletal System: limbs with 2-3+ bilateral pedal edema. Full distal pulses. Normal capillary refill. Neurological System: No discernable sensory deficit. No aphasia Psychiatric System: Conversation is rational Results - Labs CBC & BMP: 11/29/16 03:14 11/28/16 04:52 Lab Results: I have reviewed the past 24 hour labs Quality Measures - VTE Deep Vein Thrombosis/Pulmonary Embolism Present on Admission: No Contraindication to Pharmacological VTE Prophylaxis: Already on Theraputic Agent , No Prophylaxis Needed Specialty Discharge - Follow Up or Referrals Follow up with: Tim Amado MD [Physician] - 12/15/16 9:00 am Rita Magana MD [Physician] - (please call sleep lab center at [phone] when you would like to see Dr. Magana for a sleep eval.) Walter Moran MD [Physician] - (office will call you at home about your appointment with Dr. Moran.)
[2016-11-29] MEDS: SPIRONOLACTONE 25 MG TABLET PO SCH ×2 (11:24→21:53)
[2016-11-29] MEDS: FUROSEMIDE 40 MG/4 ML VIAL IV SCH ×2 (12:59→21:54)
[2016-11-29] MEDS: ALBUTEROL/IPRATROPIUM 3 ML NEB RESP TX SCH ×2 (14:00→19:40)
[2016-11-29] MEDS: metroNIDAZOLE 500 MG TABLET PO SCH ×2 (15:18→21:54)
[2016-11-29] MEDS: INSULIN GLARGINE 100 UNIT/ML SUBCUT SCH (21:54)
[2016-11-30] MEDS: ALBUTEROL/IPRATROPIUM 3 ML NEB RESP TX SCH ×2 (00:24→07:27)
[2016-11-30] MEDS: INSULIN LISPRO 100 UNIT/ML SUBCUT SCH ×3 (00:35→12:20)
[2016-11-30] MEDS: FUROSEMIDE 40 MG/4 ML VIAL IV SCH (03:36)
[2016-11-30 04:28] LABS: Calcium 8.2 MG/DL (8.5-10.1); Magnesium 1.8 MG/DL (1.8-2.4); Osmolality,Calculated 267.4 MOS/KG (273-304); Potassium 3.9 MMOL/L (3.5-5.1)
[2016-11-30] MEDS: SERTRALINE 100 MG TABLET PO SCH (09:05)
[2016-11-30] MEDS: clonazePAM 0.5 MG TABLET PO SCH (09:05)
[2016-11-30] MEDS: SPIRONOLACTONE 25 MG TABLET PO SCH (09:05)
[2016-11-30] MEDS: metroNIDAZOLE 500 MG TABLET PO SCH (09:05)
[2016-11-30] MEDS: CARVEDILOL 3.125 MG TABLET PO SCH (09:05)
[2016-11-30] MEDS: DABIGATRAN 150 MG CAPSULE PO SCH (09:05)
[2016-11-30] MEDS: PANTOPRAZOLE 40 MG TABLET PO SCH (09:05)
--- NOTE | 2016-11-30 10:33 | Discharge Summary ---
Hospital Course - Hospital Course Hospital Course: Patient is a 68-year-old male who was admitted with pneumobilia and suspected cholangitis for which she was treated with IV antibiotics. Gastroenterology consultation was obtained and input was appreciated. He ultimately underwent ERCP with common bile duct sphincterotomy and common bile duct sludge removal as well as laparoscopic cholecystectomy. His Pradaxa was held perioperatively and then restarted postoperative day #1. Cardiology consultation was also obtainedand had chest tightness as well as history of A. fib and hypertension for perioperative risk assessment for evaluation of the reported chest tightness upon arrival without findings of; the patient was found to be a an acceptable risk for surgical perioperative complications. There were no cardiac findings to note; sleep services consultation was also obtained from Dr. Magana for suspected sleep apnea. Hospitalist consultation was obtained this patient medical comorbidities to assist in medical management. The patient did well postoperatively. His drain has been removed. He was treated for some fluid overload with Lasix and Aldactone and has diuresed well. He is in no acute distress this morning and is ready for discharge home. He is given a new prescription for Aldactone twice daily 25 mg for 1 week to assist in his progressive diuresis at home. The patient's was at the bedside at the time of my evaluation. The expressed understanding of the discharge instructions and follow-up plan. The patient is encouraged to follow-up with his primary care physician in 1 week. His home medications were reviewed and reconciled. He remains a full code with his being his power of wide load escort. - Time spent with patient Time with patient DS: Greater than 30 minutes (Total discharge time for this patient, including [id number] time, clinical documentation, medication reconciliation, and discharge planning was 42 minutes.) Diagnosis - Discharge Diagnosis (1) Fluid overload Status: Acute (2) Hypertension Status: Chronic (3) Diabetes Status: Chronic (4) Chronic atrial fibrillation Status: Chronic (5) Chronic anticoagulation Status: Chronic (6) Morbid obesity Status: Chronic (7) Acute cholecystitis Status: Resolved (8) Choledocholithiasis Status: Resolved Specialty Discharge - Follow Up or Referrals Follow up with: Tim Amado MD [Physician] - 12/15/16 9:00 am Rita Mgaana MD [Physician] - (please call sleep lab center at [phone] when you would like to see Dr. Magana for a sleep eval.) Walter Moran MD [Physician] - (office will call you at home about your appointment with Dr. Moran.) Discharge Plan - Discharge Data Disposition: Disch To Home/Self Care Condition at Discharge: Stable Discharge Diet: advance to your usual diet Activity: resume usual activities as tolerated, no lifting Hygiene: no restrictions Weight Bearing at Discharge: full weight bearing Driving: no restrictions Contact your physician if you experience:: fever over 101, Difficulty voiding, Nausea/Vomiting, Shortness of breath, Bleeding, pain uncontrolled by pain medications - Discharge Medications New Ciprofloxacin Tab [Cipro Tab] 500 mg PO BID #14 tablet metroNIDAZOLE TAB [Flagyl Cap/Tab] 500 mg PO TID #42 tablet oxyCODONE/ACETAMINOPHEN 5-325 [Percocet 5-325] 1 tablet PO Q4H PRN #30 tablet PRN Reason: Pain Moderate To Severe (4-10) Pantoprazole Tab [Protonix Tab] 40 mg PO DAILY #30 tablet Spironolactone [Aldactone] 25 mg PO BID #14 tablet Continue Insulin Glargine,Hum.rec.anlog [Lantus SoloStar] 50 unit SUBCUT QPM Furosemide Tab [Lasix Tab] 40 mg PO DAILY Sertraline [Zoloft] 100 mg PO DAILY Carvedilol 3.125 mg PO BID Atorvastatin [Lipitor] 40 mg PO MOWEFR Dabigatran [Pradaxa] 150 mg PO BID clonazePAM [Clonazepam] 0.5 mg PO TID Discontinued Oxycodone HCl/Acetaminophen [Oxycodon-Acetaminophen 7.5-325] 1 - 2 each PO Q6HR PRN #30 tablet PRN Reason: Pain Insulin Glargine [Lantus] 68 unit SUBCUT AC SUPPER - Follow Up or Referral Follow Up: Tim Amado MD [Physician] - 12/15/16 9:00 am Rita Magana MD [Physician] - (please call sleep lab center at [phone] when you would like to see Dr. Magana for a sleep eval.) Walter Moran MD [Physician] - (office will call you at home about your appointment with Dr. Moran.) - Forms/Instructions Instructions: Ciprofloxacin (By mouth), Metronidazole (By mouth), Sleep Apnea Syndrome (DC), Laparoscopic Cholecystectomy (DC), Non-Alcoholic Fatty Liver Disease (DC) Exam - Constitutional Vitals: Period Temp Pulse Resp BP Sys/Pacheco Pulse Ox Last 24 Hr 96.8 F-99.1 F 98-141 110-132/63-78 90-99 Discharge Results Labs on day of discharge: Labs from last 24 hours 11/30/16 11/30/16 11/29/16 05:35 02:43 23:32 Sodium 133 L Potassium 3.9 Chloride 95 L Carbon Dioxide 32 Anion Gap 9.9 BUN 11 Creatinine 1.10 GFR Calculation 92 BUN/Creatinine Ratio 10.00 Glucose 147 H POC Glucose 167 H 185 H Calculated Osmolality 267.4 L Calcium 8.2 L Magnesium 1.8 11/29/16 11/29/16 18:16 11:54 Sodium Potassium Chloride Carbon Dioxide Anion Gap BUN Creatinine GFR Calculation BUN/Creatinine Ratio Glucose POC Glucose 246 H 161 H Calculated Osmolality Calcium Magnesium DS: Provider Date of admission: 11/22/16 23:41 Primary care physician: . No PCP Attending physician on admission: Tim Amado MD Consults: 11/22/16 23:41 Consult to Physician [CONS] Routine Comment: Consulting Provider: Scott Clements Person Notified: Loli at the answering service Date Notified: 11/23/16 Time Notified: 10:33 Consult to Physician [CONS] Routine Comment: IR Cholecystostomy Consulting Provider: 11/22/16 23:44 Consult to Physician [CONS] Routine Comment: Consulting Provider: Elana Mahmood Date Notified: 11/23/16 Time Notified: 09:16 Consult Notification Comment: Dr. Leal saw on rounds. 11/23/16 00:53 Consult to Physician [CONS] Routine Comment: evalute for marlene Consulting Provider: Rita Magana Consulting Provider Notified: Yes When should Consulting Provider be notified: In am Person Notified: elana called [phone]. [phone] Date Notified: 11/25/16 Time Notified: 09:26 11/23/16 08:52 Consult to Physician [CONS] Routine Comment: bad gallbladder, air Consulting Provider: Dilia Obrien Person Notified: Dr. Obrien Date Notified: 11/23/16 Time Notified: 10:28 Discharging clinician: Emelyn Aguirre MD Expected date of discharge: 11/30/16
--- NOTE | 2016-11-30 11:14 | Event Note ---
He feels well. He has no complaints. He ate a full breakfast. He has no abdominal pain or shortness of breath or chest pain. He has stable vital signs. Hematocrit was okay yesterday. We will discharge him home with plans to follow-up with Dr. Dominguez in 1 week
[2016-11-30 13:28] VITALS: BP 110/61
--- NOTE | 2016-12-04 15:52 | Physician Query Form ---
CLICK EDIT DOCUMENT TO SELECT QUERY ANSWER --> OK --> SIGN Vanessa Welch RN Clinical Grounds Maintenance Manager W) [phone] (f) [phone] [email or web address] PROVIDERS: Make your selection(s) from the choices in EACH section by typing an "x" and enter comments in the comment section. Please use your independent medical judgment in providing your response. This request does not imply that any particular answer is desired or expected. CLINICAL INDICATORS: (Providers should not edit this section) Based on documentation of "His echocardiogram shows a preserved ejection fraction of 50-55% with evidence of suspected right heart failure and diastolic dysfunction. This is a acute on chronic process that is acutely exacerbated after IV fluid hydration during the course of the hospitalization." "He was treated for some fluid overload with Lasix and Aldactone and has diuresed well" Please provide further specificity regarding CHF. ACUITY: ( ) Acute ( ) Chronic ( x) Acute on Chronic ( ) Clinically unable to determine TYPE: ( ) Systolic (HFrEF - heart failure with reduced systolic function/EF) (x ) Diastolic (HFpEF - heart failure with preserved systolic function/EF) ( ) Combined Systolic/Diastolic ( ) Other, please specify: ( ) Clinically unable to determine ( ) Past Medical History of Systolic CHF ( ) Past Medical History of Diastolic CHF ( ) Clinically unable to determine COMMENTS: PLEASE ALSO DOCUMENT RESPONSE IN PROGRESS NOTES AND/OR DISCHARGE SUMMARY Use of terms such as suspected, likely, or probable (associated with a specific diagnosis that is being evaluated, monitored, or treated as if it exists) are acceptable and can be restated in the discharge summary if not ruled out. MTDD
== END 2016-11-30 12:42 | disposition home health service (06) | DRG 853 ==
LOC: N.ED 16:28 → N.EDINP 11-23 00:34 → N.3E 11-23 00:44
PROVIDERS: ADMIT Surgery; ATTEND Surgery
PROC: ERCPWSP (ICD-10-PCS; 2016-11-25 12:50)
PROC: LAPCHOL (2016-11-27 09:15)

== ENCOUNTER 2020-11-16 04:31 | Inpatient (IN) ==
[2020-11-16] MEDS ORDERED: MORPHINE 2 MG/1 ML SYRINGE IV STA (05:16)
[2020-11-16] MEDS ORDERED: ONDANSETRON 4 MG/2 ML VIAL IV ONE (05:16)
[2020-11-16 05:37] LABS: Basophils # 0.1 10*3/uL (0.0-0.2); Basophils % 0.4 % (0.0-0.8); Eosinophils # 0.2 10*3/uL (0.0-0.87); Eosinophils % 1.3 % (0.00-10.9); Hematocrit 40.8 VOL% (42.0-52.0); Hemoglobin 12.8 GM/DL (14.0-18.0); Immature Granulocytes % 0.8 %; Lymphocytes # 1.2 10*3/uL (1.4-4.0); Lymphocytes % 9.4 % (21.2-54.2); Mean Corpuscular HGB Conc 31.4 GM/DL (32-36); Mean Corpuscular Volume 85.9 FL (87-102); Mean Platelet Volume 9.1 FL (9.6-12.0); Neutrophils % 83.1 % (38.7-73.9); Platelet Count 308 T/CUMM (130-400); Red Blood Count 4.75 MC/CUMM (3.8-5.5); Red Cell Distribution Width 15.8 % (9.3-17.3); White Blood Count 12.7 T/CUMM (4-12)
[2020-11-16 06:04] LABS: Albumin 3.5 G/DL (3.4-5.0); Bilirubin,Total 1.4 MG/DL (0.20-1.00); Calcium 8.8 MG/DL (8.5-10.1); Osmolality,Calculated 273.4 MOS/KG (273-304); Potassium 3.9 MMOL/L (3.5-5.1)
[2020-11-16 06:50] LABS: INR 1.3; PT Patient Result 14.8 SECS (10.5-12.0); Partial Thromboplastin Time 40.7 SECS (23.9-33.8)
[2020-11-16] MEDS ORDERED: DEXTROSE 50% 25 GM/50 ML VIAL IV PRN (08:09)
[2020-11-16] MEDS ORDERED: GLUCAGON 1 MG VIAL IM PRN (08:09)
[2020-11-16] MEDS ORDERED: ONDANSETRON 4 MG/2 ML VIAL IV PRN (08:09)
[2020-11-16 08:42] LABS: Risk Ratio 3.34; Thyroid Stimulating Hormone 4.54 uIU/ml (0.358-3.74); VLDL Cholesterol 16.4 MG/DL
[2020-11-16] MEDS: carvediloL 3.125 MG TABLET PO SCH ×2 (09:05→21:42)
[2020-11-16] MEDS: clonazePAM 0.5 MG TABLET PO SCH ×3 (09:05→21:42)
[2020-11-16] MEDS: DOCUSATE SODIUM 100 MG CAPSULE PO SCH ×2 (09:05→21:42)
[2020-11-16] MEDS: ATORVASTATIN 40 MG TABLET PO SCH (09:05)
[2020-11-16] MEDS: HYDROmorphone 2 MG/1 ML VIAL IV PRN ×4 (09:52→23:13)
[2020-11-16] MEDS: SERTRALINE 100 MG TABLET PO SCH (11:37)
[2020-11-16] MEDS: INSULIN LISPRO 100 UNIT/ML SUBCUT SCH ×2 (15:03→19:53)
[2020-11-17] MEDS: INSULIN LISPRO 100 UNIT/ML SUBCUT SCH ×4 (01:37→18:24)
[2020-11-17 04:49] LABS: Basophils # 0.1 10*3/uL (0.0-0.2); Basophils % 0.6 % (0.0-0.8); Eosinophils # 0.2 10*3/uL (0.0-0.87); Eosinophils % 1.4 % (0.00-10.9); Hematocrit 35.8 VOL% (42.0-52.0); Hemoglobin 11.5 GM/DL (14.0-18.0); Immature Granulocytes Absolute 0.11 #; Lymphocytes # 1.7 10*3/uL (1.4-4.0); Lymphocytes % 15.6 % (21.2-54.2); Mean Corpuscular HGB Conc 32.1 GM/DL (32-36); Mean Corpuscular Volume 83.4 FL (87-102); Monocytes % 7.7 % (1.7-12.7); Neutrophils % 73.7 % (38.7-73.9); Platelet Count 296 T/CUMM (130-400); Red Blood Count 4.29 MC/CUMM (3.8-5.5); Red Cell Distribution Width 15.9 % (9.3-17.3); White Blood Count 11.1 T/CUMM (4-12)
[2020-11-17 05:27] LABS: Calcium 8.3 MG/DL (8.5-10.1); Osmolality,Calculated 276.1 MOS/KG (273-304); Potassium 4.2 MMOL/L (3.5-5.1)
[2020-11-17] MEDS ORDERED: ceFAZolin 2,000 MG/50 ML DUPLEX IV ONE (06:00)
[2020-11-17] MEDS ORDERED: LIDOCAINE 2% 5 ML VIAL ONE (06:34)
[2020-11-17] MEDS ORDERED: SUCCINYLCHOLINE 200 MG/10 ML VIAL ONE (06:34)
[2020-11-17] MEDS ORDERED: propofoL 200 MG/20 ML VIAL IV ONE (06:34)
[2020-11-17] MEDS ORDERED: ROCURONIUM 50 MG/5 ML VIAL IV ONE (06:34)
[2020-11-17] MEDS ORDERED: ONDANSETRON 4 MG/2 ML VIAL ONE (06:34)
[2020-11-17] MEDS ORDERED: fentaNYL 100 MCG/2 ML VIAL ONE (06:35)
[2020-11-17] MEDS ORDERED: ceFAZolin 1,000 MG VIAL ONE (07:32)
[2020-11-17] MEDS ORDERED: KETAMINE 500 MG/10 ML VIAL ONE (08:06)
[2020-11-17] MEDS ORDERED: ALBUMIN 5% 12.5 GM/250 ML VIAL IV ONE (08:23)
[2020-11-17] MEDS ORDERED: PHENYLEPHRINE 1 MG/10 ML SYRINGE IV ONE (08:53)
[2020-11-17] MEDS ORDERED: LACTATED RINGERS 1,000 ML IV ONE (08:53)
[2020-11-17] MEDS ORDERED: CALCIUM CHLORIDE 1,000 MG/10 ML VIAL IV ONE (08:53)
[2020-11-17] MEDS ORDERED: SUGAMMADEX 200 MG/2 ML VIAL IV ONE (08:59)
[2020-11-17] MEDS ORDERED: MAGNESIUM HYDROXIDE SUSP 30 ML UDCUP PO PRN (09:04)
[2020-11-17] MEDS: SERTRALINE 100 MG TABLET PO SCH (10:51)
[2020-11-17] MEDS: carvediloL 3.125 MG TABLET PO SCH ×2 (10:51→20:13)
[2020-11-17] MEDS: DOCUSATE SODIUM 100 MG CAPSULE PO SCH ×2 (10:51→20:14)
[2020-11-17] MEDS: clonazePAM 0.5 MG TABLET PO SCH ×3 (10:51→20:13)
[2020-11-17] MEDS: oxyCODONE IR 5 MG TABLET PO PRN (10:52)
[2020-11-17] MEDS ORDERED: ALBUTEROL INHALER 18 GM INH ONE (12:53)
[2020-11-17] MEDS: ACETAMINOPHEN 500 MG TABLET PO SCH ×2 (13:05→20:13)
[2020-11-17] MEDS: ceFAZolin 2,000 MG/50 ML DUPLEX IV SCH ×2 (15:34→23:04)
[2020-11-17] MEDS: INSULIN GLARGINE 100 UNIT/ML SUBCUT SCH (18:24)
[2020-11-18] MEDS: ACETAMINOPHEN 500 MG TABLET PO SCH ×2 (01:06→08:09)
[2020-11-18] MEDS: INSULIN LISPRO 100 UNIT/ML SUBCUT SCH ×4 (01:07→18:24)
[2020-11-18 05:35] LABS: Basophils # 0.1 10*3/uL (0.0-0.2); Basophils % 0.4 % (0.0-0.8); Eosinophils # 0.1 10*3/uL (0.0-0.87); Hematocrit 31.5 VOL% (42.0-52.0); Hemoglobin 9.9 GM/DL (14.0-18.0); Immature Granulocytes % 0.7 %; Immature Granulocytes Absolute 0.08 #; Lymphocytes # 1.7 10*3/uL (1.4-4.0); Lymphocytes % 15.1 % (21.2-54.2); Mean Corpuscular HGB Conc 31.4 GM/DL (32-36); Mean Corpuscular Volume 85.8 FL (87-102); Mean Platelet Volume 9.4 FL (9.6-12.0); Monocytes % 8.5 % (1.7-12.7); Neutrophils % 74.3 % (38.7-73.9); Platelet Count 269 T/CUMM (130-400); Red Blood Count 3.67 MC/CUMM (3.8-5.5); Red Cell Distribution Width 15.6 % (9.3-17.3); White Blood Count 11.4 T/CUMM (4-12)
[2020-11-18 05:53] LABS: Calcium 8.4 MG/DL (8.5-10.1); Osmolality,Calculated 268.7 MOS/KG (273-304); Potassium 4.2 MMOL/L (3.5-5.1)
[2020-11-18] MEDS: clonazePAM 0.5 MG TABLET PO SCH ×3 (08:10→20:38)
[2020-11-18] MEDS: carvediloL 3.125 MG TABLET PO SCH ×2 (08:10→20:37)
[2020-11-18] MEDS: DOCUSATE SODIUM 100 MG CAPSULE PO SCH ×2 (08:10→20:38)
[2020-11-18] MEDS: SERTRALINE 100 MG TABLET PO SCH (08:10)
[2020-11-18] MEDS: PANTOPRAZOLE 40 MG TABLET PO SCH (08:10)
[2020-11-18] MEDS: oxyCODONE IR 5 MG TABLET PO PRN (10:50)
[2020-11-18] MEDS: INSULIN GLARGINE 100 UNIT/ML SUBCUT SCH (18:26)
[2020-11-18] MEDS: DABIGATRAN 150 MG CAPSULE PO SCH (20:38)
[2020-11-19] MEDS: INSULIN LISPRO 100 UNIT/ML SUBCUT SCH ×4 (02:23→17:48)
[2020-11-19 05:56] LABS: Basophils # 0.1 10*3/uL (0.0-0.2); Basophils % 0.5 % (0.0-0.8); Eosinophils # 0.2 10*3/uL (0.0-0.87); Eosinophils % 1.9 % (0.00-10.9); Hematocrit 33.5 VOL% (42.0-52.0); Hemoglobin 10.8 GM/DL (14.0-18.0); Lymphocytes # 1.5 10*3/uL (1.4-4.0); Mean Corpuscular HGB Conc 32.2 GM/DL (32-36); Mean Corpuscular Volume 85.9 FL (87-102); Mean Platelet Volume 9.6 FL (9.6-12.0); Monocytes % 7.9 % (1.7-12.7); Neutrophils % 73.7 % (38.7-73.9); Platelet Count 277 T/CUMM (130-400); Red Cell Distribution Width 15.8 % (9.3-17.3); White Blood Count 10.3 T/CUMM (4-12)
[2020-11-19 06:06] LABS: Calcium 8.3 MG/DL (8.5-10.1); Osmolality,Calculated 264.8 MOS/KG (273-304); Potassium 4.5 MMOL/L (3.5-5.1)
[2020-11-19] MEDS: clonazePAM 0.5 MG TABLET PO SCH ×3 (09:50→21:51)
[2020-11-19] MEDS: DABIGATRAN 150 MG CAPSULE PO SCH ×2 (09:50→21:51)
[2020-11-19] MEDS: ATORVASTATIN 40 MG TABLET PO SCH (09:50)
[2020-11-19] MEDS: SODIUM CHLORIDE 0.9% 1,000 ML IV SCH (09:50)
[2020-11-19] MEDS: PANTOPRAZOLE 40 MG TABLET PO SCH (09:50)
[2020-11-19] MEDS: DOCUSATE SODIUM 100 MG CAPSULE PO SCH ×2 (09:50→21:50)
[2020-11-19] MEDS: carvediloL 3.125 MG TABLET PO SCH ×2 (09:50→21:51)
[2020-11-19] MEDS: SERTRALINE 100 MG TABLET PO SCH (09:50)
[2020-11-19] MEDS: oxyCODONE IR 5 MG TABLET PO PRN (11:38)
[2020-11-19] MEDS: FUROSEMIDE 40 MG TABLET PO SCH (14:50)
[2020-11-19] MEDS: INSULIN GLARGINE 100 UNIT/ML SUBCUT SCH (18:02)
[2020-11-20] MEDS: INSULIN LISPRO 100 UNIT/ML SUBCUT SCH ×3 (00:47→12:02)
[2020-11-20] MEDS: SODIUM CHLORIDE 0.9% 1,000 ML IV SCH (03:36)
[2020-11-20 05:23] LABS: Basophils % 0.3 % (0.0-0.8); Eosinophils # 0.3 10*3/uL (0.0-0.87); Eosinophils % 2.5 % (0.00-10.9); Hematocrit 32.1 VOL% (42.0-52.0); Hemoglobin 10.4 GM/DL (14.0-18.0); Immature Granulocytes % 1.2 %; Immature Granulocytes Absolute 0.16 #; Lymphocytes # 1.6 10*3/uL (1.4-4.0); Lymphocytes % 12.3 % (21.2-54.2); Mean Corpuscular HGB Conc 32.4 GM/DL (32-36); Mean Corpuscular Volume 84.3 FL (87-102); Mean Platelet Volume 9.1 FL (9.6-12.0); Monocytes % 7.5 % (1.7-12.7); Neutrophils % 76.2 % (38.7-73.9); Platelet Count 362 T/CUMM (130-400); Red Blood Count 3.81 MC/CUMM (3.8-5.5); Red Cell Distribution Width 15.8 % (9.3-17.3)
[2020-11-20 05:36] LABS: Calcium 8.2 MG/DL (8.5-10.1); Osmolality,Calculated 269.5 MOS/KG (273-304); Potassium 3.9 MMOL/L (3.5-5.1)
[2020-11-20] MEDS: DOCUSATE SODIUM 100 MG CAPSULE PO SCH (08:14)
[2020-11-20] MEDS: carvediloL 3.125 MG TABLET PO SCH (08:14)
[2020-11-20] MEDS: clonazePAM 0.5 MG TABLET PO SCH (08:14)
[2020-11-20] MEDS: FUROSEMIDE 40 MG TABLET PO SCH (08:15)
[2020-11-20] MEDS: SERTRALINE 100 MG TABLET PO SCH (08:15)
[2020-11-20] MEDS: DABIGATRAN 150 MG CAPSULE PO SCH (08:15)
[2020-11-20] MEDS: PANTOPRAZOLE 40 MG TABLET PO SCH (08:15)
[2020-11-20 11:08] VITALS: BP 134/58
[2020-11-20] MEDS ORDERED: ZINC OXIDE PASTE 113 GM TUBE TOP SCH (12:30)
== END 2020-11-20 15:30 | disposition swing bed (61) | DRG 480 ==
LOC: EDUNIT# → EDBD → N.ED 04:31 → N.EDINP 08:05 → N.3E 10:29
PROVIDERS: ADMIT Hospitalist; ATTEND Hospitalist

== ENCOUNTER 2020-12-27 06:12 | Inpatient (IN) ==
[2020-12-27] MEDS ORDERED: DILTIAZEM 50 MG/10 ML VIAL IV STA (06:33)
[2020-12-27] MEDS ORDERED: DILTIAZEM 100 MG VIAL.ADD IV ONE (06:34)
[2020-12-27] MEDS ORDERED: DILTIAZEM 25 MG/5 ML VIAL IV ONE (06:35)
[2020-12-27] MEDS: DILTIAZEM INJ 100 MG in SODIUM CHLORIDE 0.9% 100 ML IV SCH ×2 (06:40→11:19)
[2020-12-27 06:45] LABS: Basophils % 0.3 % (0.0-0.8); Eosinophils # 0.1 10*3/uL (0.0-0.87); Eosinophils % 0.4 % (0.00-10.9); Hematocrit 46.4 VOL% (42.0-52.0); Hemoglobin 14.7 GM/DL (14.0-18.0); Immature Granulocytes % 0.5 %; Immature Granulocytes Absolute 0.06 #; Lymphocytes # 1.5 10*3/uL (1.4-4.0); Lymphocytes % 12.4 % (21.2-54.2); Mean Corpuscular HGB Conc 31.7 GM/DL (32-36); Mean Corpuscular Volume 83.2 FL (87-102); Mean Platelet Volume 8.3 FL (9.6-12.0); Monocytes % 3.8 % (1.7-12.7); Neutrophils % 82.6 % (38.7-73.9); Platelet Count 581 T/CUMM (130-400); Red Blood Count 5.58 MC/CUMM (3.8-5.5); White Blood Count 12.4 T/CUMM (4-12)
[2020-12-27 06:56] LABS: INR 1.2; PT Patient Result 13.5 SECS (10.5-12.0); Partial Thromboplastin Time 31.4 SECS (23.9-33.8)
[2020-12-27 07:04] LABS: Bilirubin,Total 2.7 MG/DL (0.20-1.00); Calcium 8.9 MG/DL (8.5-10.1); Osmolality,Calculated 260.1 MOS/KG (273-304); Potassium 4.6 MMOL/L (3.5-5.1)
[2020-12-27] MEDS ORDERED: ALBUTEROL 2.5 MG/3 ML NEB RESP TX PRN (08:29)
[2020-12-27] MEDS ORDERED: ONDANSETRON 4 MG/2 ML VIAL IV PRN (08:29)
[2020-12-27] MEDS ORDERED: ACETAMINOPHEN 325 MG TABLET PO PRN (08:29)
[2020-12-27] MEDS ORDERED: MAGNESIUM HYDROXIDE SUSP 30 ML UDCUP PO PRN (08:32)
[2020-12-27] MEDS ORDERED: clonazePAM 0.5 MG TABLET PO PRN (08:32)
[2020-12-27] MEDS ORDERED: DEXTROSE 50% 25 GM/50 ML VIAL IV PRN (08:34)
[2020-12-27] MEDS ORDERED: GLUCAGON 1 MG VIAL IM PRN (08:34)
[2020-12-27] MEDS: ENOXAPARIN 40 MG/0.4 ML SYRINGE SUBCUT SCH (09:47)
[2020-12-27] MEDS: PIPERACILLIN/TAZOBACTAM 3,375 MG in SODIUM CHLORIDE 0.9% 100 ML IV SCH ×2 (09:48→18:10)
[2020-12-27] MEDS: DOCUSATE SODIUM 100 MG CAPSULE PO SCH ×2 (09:48→20:49)
[2020-12-27] MEDS: PANTOPRAZOLE 40 MG TABLET PO SCH (09:48)
[2020-12-27] MEDS: carvediloL 3.125 MG TABLET PO SCH ×2 (09:48→20:49)
[2020-12-27] MEDS ORDERED: SODIUM CHLORIDE 0.9% 1,000 ML IV ONE (10:11)
[2020-12-27] MEDS ORDERED: INFLUENZA VIRUS VACCINE 0.5 ML SYRINGE IM ONE (11:41)
[2020-12-27 11:54] LABS: Bilirubin,Urine Negative (Negative); Blood, Urine Small mg/dL (Negative); Glucose,Urine (UA) Negative (Negative); Ketones,Urine Negative (Negative); Mucus,Urine Occasional /LPF (Occasional); Nitrite,Urine Negative (Negative); Protein,Urine Negative; RBC,Urine 5 /HPF (0-4); Urine Appearance CLOUDY (Clear); Urine Color Amber (Yellow); Urine Specific Gravity 1.038 (1.001-1.035); Urine Urobilinogen < 2.0 EU/DL (0.2-1.0)
[2020-12-27] MEDS: SODIUM CHLORIDE 0.9% 1,000 ML IV SCH ×2 (12:44→22:49)
[2020-12-27] MEDS: SERTRALINE 100 MG TABLET PO SCH (12:49)
[2020-12-27] MEDS: INSULIN LISPRO 100 UNIT/ML SUBCUT SCH ×3 (12:51→20:49)
[2020-12-27] MEDS: CALCIUM CARBONATE CHEW 500 MG TABLET PO PRN (14:05)
[2020-12-27] MEDS: DABIGATRAN 150 MG CAPSULE PO SCH ×2 (14:16→22:22)
[2020-12-27] MEDS ORDERED: SODIUM CHLORIDE 0.9% 500 ML IV ONE (17:24)
[2020-12-27] MEDS ORDERED: INSULIN GLARGINE 100 UNIT/ML SUBCUT SCH (21:00)
[2020-12-28] MEDS: PIPERACILLIN/TAZOBACTAM 3,375 MG in SODIUM CHLORIDE 0.9% 100 ML IV SCH ×3 (00:16→17:11)
[2020-12-28 06:55] LABS: Basophils % 0.2 % (0.0-0.8); Eosinophils % 0.2 % (0.00-10.9); Hemoglobin 10.9 GM/DL (14.0-18.0); Immature Granulocytes % 0.5 %; Immature Granulocytes Absolute 0.05 #; Lymphocytes # 1.4 10*3/uL (1.4-4.0); Lymphocytes % 13.8 % (21.2-54.2); Mean Corpuscular Volume 81.3 FL (87-102); Mean Platelet Volume 8.6 FL (9.6-12.0); Monocytes % 5.9 % (1.7-12.7); Neutrophils % 79.4 % (38.7-73.9); Platelet Count 313 T/CUMM (130-400); Red Blood Count 4.06 MC/CUMM (3.8-5.5); White Blood Count 10.4 T/CUMM (4-12)
[2020-12-28 07:15] LABS: Calcium 8.1 MG/DL (8.5-10.1); Osmolality,Calculated 269.2 MOS/KG (273-304); Potassium 4.1 MMOL/L (3.5-5.1)
[2020-12-28] MEDS: SERTRALINE 100 MG TABLET PO SCH (08:38)
[2020-12-28] MEDS: carvediloL 3.125 MG TABLET PO SCH ×2 (08:38→20:11)
[2020-12-28] MEDS: PANTOPRAZOLE 40 MG TABLET PO SCH (08:38)
[2020-12-28] MEDS: ATORVASTATIN 40 MG TABLET PO SCH (08:38)
[2020-12-28] MEDS: DOCUSATE SODIUM 100 MG CAPSULE PO SCH ×2 (08:39→20:11)
[2020-12-28] MEDS: INSULIN LISPRO 100 UNIT/ML SUBCUT SCH ×4 (08:40→20:06)
[2020-12-28] MEDS: SODIUM CHLORIDE 0.9% 1,000 ML IV SCH ×2 (08:49→18:49)
[2020-12-28] MEDS: CALCIUM CARBONATE CHEW 500 MG TABLET PO PRN ×2 (09:16→21:21)
[2020-12-28] MEDS: DABIGATRAN 150 MG CAPSULE PO SCH ×2 (09:16→20:11)
[2020-12-28] MEDS: ENOXAPARIN 40 MG/0.4 ML SYRINGE SUBCUT SCH (09:23)
[2020-12-28] MEDS: TRIAMCINOLONE 0.025% CREAM 15 GM TUBE TOP SCH ×2 (15:01→20:33)
[2020-12-29] MEDS: PIPERACILLIN/TAZOBACTAM 3,375 MG in SODIUM CHLORIDE 0.9% 100 ML IV SCH ×3 (01:14→16:51)
[2020-12-29] MEDS: SODIUM CHLORIDE 0.9% 1,000 ML IV SCH ×2 (04:56→14:25)
[2020-12-29 06:42] LABS: Basophils % 0.1 % (0.0-0.8); Eosinophils # 0.1 10*3/uL (0.0-0.87); Eosinophils % 0.7 % (0.00-10.9); Hematocrit 33.9 VOL% (42.0-52.0); Hemoglobin 10.7 GM/DL (14.0-18.0); Immature Granulocytes % 0.6 %; Immature Granulocytes Absolute 0.05 #; Lymphocytes % 12.2 % (21.2-54.2); Mean Corpuscular HGB Conc 31.6 GM/DL (32-36); Mean Corpuscular Volume 84.1 FL (87-102); Mean Platelet Volume 8.7 FL (9.6-12.0); Monocytes % 6.9 % (1.7-12.7); Neutrophils % 79.5 % (38.7-73.9); Platelet Count 286 T/CUMM (130-400); Red Blood Count 4.03 MC/CUMM (3.8-5.5); Red Cell Distribution Width 16.1 % (9.3-17.3); White Blood Count 8.3 T/CUMM (4-12)
[2020-12-29 07:04] LABS: Calcium 8.2 MG/DL (8.5-10.1); Osmolality,Calculated 271.1 MOS/KG (273-304); Potassium 3.9 MMOL/L (3.5-5.1); Thyroid Stimulating Hormone 1.22 uIU/ml (0.358-3.74)
[2020-12-29] MEDS: INSULIN LISPRO 100 UNIT/ML SUBCUT SCH ×4 (08:06→21:05)
[2020-12-29] MEDS: SERTRALINE 100 MG TABLET PO SCH (08:46)
[2020-12-29] MEDS: DABIGATRAN 150 MG CAPSULE PO SCH ×2 (08:47→21:08)
[2020-12-29] MEDS: TRIAMCINOLONE 0.025% CREAM 15 GM TUBE TOP SCH ×2 (08:47→21:09)
[2020-12-29] MEDS: DOCUSATE SODIUM 100 MG CAPSULE PO SCH ×2 (08:47→21:08)
[2020-12-29] MEDS: PANTOPRAZOLE 40 MG TABLET PO SCH (08:47)
[2020-12-29] MEDS: carvediloL 3.125 MG TABLET PO SCH ×2 (08:47→21:09)
[2020-12-30] MEDS: SODIUM CHLORIDE 0.9% 1,000 ML IV SCH ×3 (01:37→21:42)
[2020-12-30] MEDS: PIPERACILLIN/TAZOBACTAM 3,375 MG in SODIUM CHLORIDE 0.9% 100 ML IV SCH ×3 (01:46→18:37)
[2020-12-30 04:40] LABS: Basophils % 0.2 % (0.0-0.8); Eosinophils # 0.1 10*3/uL (0.0-0.87); Eosinophils % 0.7 % (0.00-10.9); Hematocrit 32.9 VOL% (42.0-52.0); Hemoglobin 10.3 GM/DL (14.0-18.0); Immature Granulocytes Absolute 0.08 #; Lymphocytes # 1.1 10*3/uL (1.4-4.0); Lymphocytes % 13.5 % (21.2-54.2); Mean Corpuscular HGB Conc 31.3 GM/DL (32-36); Mean Corpuscular Volume 84.1 FL (87-102); Mean Platelet Volume 8.5 FL (9.6-12.0); Monocytes % 6.2 % (1.7-12.7); Neutrophils % 78.4 % (38.7-73.9); Platelet Count 313 T/CUMM (130-400); Red Blood Count 3.91 MC/CUMM (3.8-5.5); Red Cell Distribution Width 16.3 % (9.3-17.3); White Blood Count 8.1 T/CUMM (4-12)
[2020-12-30 05:08] LABS: Osmolality,Calculated 267.4 MOS/KG (273-304); Potassium 3.8 MMOL/L (3.5-5.1)
[2020-12-30] MEDS: DOCUSATE SODIUM 100 MG CAPSULE PO SCH ×2 (08:58→20:46)
[2020-12-30] MEDS: DABIGATRAN 150 MG CAPSULE PO SCH ×2 (08:58→20:46)
[2020-12-30] MEDS: SERTRALINE 100 MG TABLET PO SCH (08:58)
[2020-12-30] MEDS: PANTOPRAZOLE 40 MG TABLET PO SCH (08:58)
[2020-12-30] MEDS: carvediloL 3.125 MG TABLET PO SCH ×2 (08:58→20:46)
[2020-12-30] MEDS: TRIAMCINOLONE 0.025% CREAM 15 GM TUBE TOP SCH ×2 (09:07→20:46)
[2020-12-30] MEDS: INSULIN LISPRO 100 UNIT/ML SUBCUT SCH ×4 (10:01→20:45)
[2020-12-31] MEDS: PIPERACILLIN/TAZOBACTAM 3,375 MG in SODIUM CHLORIDE 0.9% 100 ML IV SCH ×3 (01:44→17:08)
[2020-12-31 05:13] LABS: Basophils % 0.5 % (0.0-0.8); Eosinophils # 0.1 10*3/uL (0.0-0.87); Eosinophils % 1.3 % (0.00-10.9); Hematocrit 34.8 VOL% (42.0-52.0); Hemoglobin 11.1 GM/DL (14.0-18.0); Immature Granulocytes % 1.3 %; Immature Granulocytes Absolute 0.11 #; Lymphocytes # 1.3 10*3/uL (1.4-4.0); Lymphocytes % 15.1 % (21.2-54.2); Mean Corpuscular HGB Conc 31.9 GM/DL (32-36); Mean Corpuscular Volume 84.3 FL (87-102); Mean Platelet Volume 8.6 FL (9.6-12.0); Monocytes % 7.6 % (1.7-12.7); Neutrophils % 74.2 % (38.7-73.9); Platelet Count 335 T/CUMM (130-400); Red Blood Count 4.13 MC/CUMM (3.8-5.5); White Blood Count 8.8 T/CUMM (4-12)
[2020-12-31 05:48] LABS: Osmolality,Calculated 264.4 MOS/KG (273-304); Potassium 3.8 MMOL/L (3.5-5.1)
[2020-12-31] MEDS: SERTRALINE 100 MG TABLET PO SCH (09:54)
[2020-12-31] MEDS: PANTOPRAZOLE 40 MG TABLET PO SCH (09:54)
[2020-12-31] MEDS: DABIGATRAN 150 MG CAPSULE PO SCH ×2 (09:54→20:39)
[2020-12-31] MEDS: INSULIN LISPRO 100 UNIT/ML SUBCUT SCH ×4 (09:55→20:39)
[2020-12-31] MEDS: DOCUSATE SODIUM 100 MG CAPSULE PO SCH ×2 (09:55→20:39)
[2020-12-31] MEDS: carvediloL 3.125 MG TABLET PO SCH ×2 (09:55→20:39)
[2020-12-31] MEDS: ATORVASTATIN 40 MG TABLET PO SCH (09:55)
[2020-12-31] MEDS: TRIAMCINOLONE 0.025% CREAM 15 GM TUBE TOP SCH ×2 (09:56→20:42)
[2020-12-31] MEDS: SODIUM CHLORIDE 0.9% 1,000 ML IV SCH (11:50)
[2021-01-01] MEDS: PIPERACILLIN/TAZOBACTAM 3,375 MG in SODIUM CHLORIDE 0.9% 100 ML IV SCH ×3 (01:25→16:47)
[2021-01-01] MEDS: SODIUM CHLORIDE 0.9% 1,000 ML IV SCH ×2 (01:25→13:54)
[2021-01-01 05:59] LABS: Basophils % 0.4 % (0.0-0.8); Eosinophils # 0.2 10*3/uL (0.0-0.87); Eosinophils % 2.1 % (0.00-10.9); Hematocrit 33.6 VOL% (42.0-52.0); Hemoglobin 10.8 GM/DL (14.0-18.0); Immature Granulocytes % 2.4 %; Immature Granulocytes Absolute 0.19 #; Lymphocytes # 1.5 10*3/uL (1.4-4.0); Lymphocytes % 18.7 % (21.2-54.2); Mean Corpuscular HGB Conc 32.1 GM/DL (32-36); Mean Corpuscular Volume 84.2 FL (87-102); Mean Platelet Volume 8.6 FL (9.6-12.0); Monocytes % 9.6 % (1.7-12.7); Neutrophils % 66.8 % (38.7-73.9); Platelet Count 319 T/CUMM (130-400); Red Blood Count 3.99 MC/CUMM (3.8-5.5); Red Cell Distribution Width 16.1 % (9.3-17.3)
[2021-01-01 06:35] LABS: Calcium 8.1 MG/DL (8.5-10.1); Osmolality,Calculated 272.8 MOS/KG (273-304); Potassium 3.9 MMOL/L (3.5-5.1)
[2021-01-01] MEDS: DOCUSATE SODIUM 100 MG CAPSULE PO SCH ×2 (10:12→21:23)
[2021-01-01] MEDS: DABIGATRAN 150 MG CAPSULE PO SCH ×2 (10:12→21:22)
[2021-01-01] MEDS: PANTOPRAZOLE 40 MG TABLET PO SCH (10:12)
[2021-01-01] MEDS: carvediloL 3.125 MG TABLET PO SCH ×2 (10:13→21:23)
[2021-01-01] MEDS: INSULIN LISPRO 100 UNIT/ML SUBCUT SCH ×4 (10:14→21:24)
[2021-01-01] MEDS: TRIAMCINOLONE 0.025% CREAM 15 GM TUBE TOP SCH ×2 (10:15→21:23)
[2021-01-01] MEDS: SERTRALINE 100 MG TABLET PO SCH (10:18)
[2021-01-02] MEDS: SODIUM CHLORIDE 0.9% 1,000 ML IV SCH ×3 (02:25→22:52)
[2021-01-02] MEDS: PIPERACILLIN/TAZOBACTAM 3,375 MG in SODIUM CHLORIDE 0.9% 100 ML IV SCH ×3 (02:25→16:29)
[2021-01-02 07:04] LABS: Basophils # 0.1 10*3/uL (0.0-0.2); Basophils % 0.8 % (0.0-0.8); Eosinophils # 0.2 10*3/uL (0.0-0.87); Eosinophils % 1.9 % (0.00-10.9); Hematocrit 36.1 VOL% (42.0-52.0); Hemoglobin 11.5 GM/DL (14.0-18.0); Immature Granulocytes % 2.3 %; Immature Granulocytes Absolute 0.21 #; Lymphocytes # 1.4 10*3/uL (1.4-4.0); Lymphocytes % 15.4 % (21.2-54.2); Mean Corpuscular HGB Conc 31.9 GM/DL (32-36); Mean Platelet Volume 8.8 FL (9.6-12.0); Monocytes % 7.9 % (1.7-12.7); Neutrophils % 71.7 % (38.7-73.9); Platelet Count 363 T/CUMM (130-400); Red Cell Distribution Width 16.3 % (9.3-17.3)
[2021-01-02 07:31] LABS: Calcium 7.9 MG/DL (8.5-10.1); Potassium 3.8 MMOL/L (3.5-5.1)
[2021-01-02] MEDS: INSULIN LISPRO 100 UNIT/ML SUBCUT SCH ×4 (10:25→20:50)
[2021-01-02] MEDS: carvediloL 3.125 MG TABLET PO SCH ×2 (10:26→20:49)
[2021-01-02] MEDS: PANTOPRAZOLE 40 MG TABLET PO SCH (10:26)
[2021-01-02] MEDS: ATORVASTATIN 40 MG TABLET PO SCH (10:26)
[2021-01-02] MEDS: SERTRALINE 100 MG TABLET PO SCH (10:26)
[2021-01-02] MEDS: DABIGATRAN 150 MG CAPSULE PO SCH ×2 (10:26→20:49)
[2021-01-02] MEDS: TRIAMCINOLONE 0.025% CREAM 15 GM TUBE TOP SCH ×2 (10:26→20:50)
[2021-01-02] MEDS: DOCUSATE SODIUM 100 MG CAPSULE PO SCH ×2 (10:26→20:49)
[2021-01-03] MEDS: PIPERACILLIN/TAZOBACTAM 3,375 MG in SODIUM CHLORIDE 0.9% 100 ML IV SCH ×2 (00:17→08:52)
[2021-01-03 07:25] LABS: Basophils % 0.5 % (0.0-0.8); Eosinophils # 0.2 10*3/uL (0.0-0.87); Eosinophils % 2.4 % (0.00-10.9); Hematocrit 35.2 VOL% (42.0-52.0); Hemoglobin 11.4 GM/DL (14.0-18.0); Immature Granulocytes % 3.3 %; Immature Granulocytes Absolute 0.26 #; Lymphocytes # 1.4 10*3/uL (1.4-4.0); Lymphocytes % 17.4 % (21.2-54.2); Mean Corpuscular HGB Conc 32.4 GM/DL (32-36); Mean Platelet Volume 8.4 FL (9.6-12.0); Monocytes % 8.5 % (1.7-12.7); Neutrophils % 67.9 % (38.7-73.9); Platelet Count 355 T/CUMM (130-400); Red Blood Count 4.19 MC/CUMM (3.8-5.5); Red Cell Distribution Width 16.6 % (9.3-17.3); White Blood Count 7.9 T/CUMM (4-12)
[2021-01-03 07:43] LABS: Calcium 8.1 MG/DL (8.5-10.1)
[2021-01-03] MEDS: INSULIN LISPRO 100 UNIT/ML SUBCUT SCH ×2 (08:04→11:56)
[2021-01-03] MEDS: SODIUM CHLORIDE 0.9% 1,000 ML IV SCH (08:54)
[2021-01-03] MEDS: TRIAMCINOLONE 0.025% CREAM 15 GM TUBE TOP SCH (08:55)
[2021-01-03] MEDS: DABIGATRAN 150 MG CAPSULE PO SCH (08:55)
[2021-01-03] MEDS: carvediloL 3.125 MG TABLET PO SCH (08:55)
[2021-01-03] MEDS: PANTOPRAZOLE 40 MG TABLET PO SCH (08:55)
[2021-01-03] MEDS: SERTRALINE 100 MG TABLET PO SCH (08:55)
[2021-01-03] MEDS: DOCUSATE SODIUM 100 MG CAPSULE PO SCH (08:55)
[2021-01-03 12:11] VITALS: BP 132/92
[2021-01-03] MEDS ORDERED: LEVOFLOXACIN 750 MG TABLET PO SCH (13:00)
== END 2021-01-03 14:59 | disposition swing bed (61) | DRG 871 ==
LOC: EDBD → EDUNIT# → N.ED 06:12 → N.EDINP 08:29 → SUATTDRO 08:29 → N.CC 09:14 → N.ICU 10:36 → N.TELES 12-29 13:59
PROVIDERS: ADMIT Family Medicine; ATTEND Hospitalist